=== PATIENT | female | born 1960 | race Caucasian/White ===

== ENCOUNTER 2017-03-30 07:55 | Emergency (ER) | payer OTHER ==
[~2017-03-30] VITALS: Ht 144.8 cm; Wt 40.0 kg
[2017-03-30 07:55] VITALS: BP 90/55; PULSE 108; RESP 20; TEMP 98.8; O2SAT 99
[~2017-03-30 07:55] MED LIST: AZIT250T3 PO; BIOT1SUB SL; BROMSYP PO; CLON1TAB PO; FOLI1TAB4 PO; MAGICADU2 SWISH-SWAL; MEDR4PAK PO; SYNT88TA PO; VENTAER INH; VITA10002 PO
--- NOTE | 2017-03-30 08:06 | PD ---
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 Patient went to the [employer] and bought [id number] itch cream and some sort of a medicated powder put down there. Patient says that made the lesions worse. She applied hydrocortisone cream and Benadryl cream and it is not helping. She says currently it hurts a lot down there. Patient is not sexually active. She's never had anything like this before. No history of fever or chills. She seems anxious and in moderate distress. She was tachycardic and slightly hypotensive. The patient is also very petite. [facility] Past Medical History Narrative Medical List of her past medical, surgical, social and family history was reviewed from the nursing note. ?: Not Social History Alcohol Use: No Tobacco Use: Yes Substance Use: No Allergies-Medications (Allergen,Severity, Reaction): Coded Allergies: Darvocet-N 100 (Verified Allergy, Severe, 01/02/17) STOMACH PAIN Darvon (Verified Allergy, Severe, 01/02/17) PASS OUT Depakote (Verified Allergy, Severe, Anaphylaxis, 01/02/17) Erythromycin (Verified Allergy, Severe, VOMITING, 01/02/17) Penicillin (Verified Allergy, Severe, PASS OUT, 01/02/17) Lortab (Verified Allergy, Mild, VOMITING, 01/02/17) Iodine (Verified Allergy, Unknown, 01/02/17) Comments List of her allergies reviewed from the nursing note. Reported Meds & Prescriptions Reported Meds & Active Scripts Active Ibuprofen 400 Mg Tab 400 Mg PO Q4H PRN Bactrim (Sulfamethoxazole-Trimethoprim) 400-80 Mg Tab 1 Tab PO BID 10 Days Ventolin Hfa 18 GM Inh (Albuterol Sulfate) 90 Mcg/Act Aer 2 Puff INH Q6H PRN Azithromycin 250 Mg Tab 250 Mg PO DIRECTED Take 2 tabs (500 mg) on day 1 then 1 tab daily x 4 days. Magic Mouthwash Adult Liq (Multi-Ingredient Mouthwash/Gargle) 120 Ml Susp 5 Ml SWISH-SWAL ACHS Each 5mL contains: Nystatin 200,000units, Diphenhydramine 4.25mg, Viscous Lidocaine 10mg, Lerma syrup 0.8 mL Medrol Dosepak (Methylprednisolone) 4 Mg Dspk 4 Mg PO DIRECTED Per Pharmacist direction Bromfed DM Liq (Iqpnwzaspqulidq-Ufeibdzhthekgzm-NN Liq) 30-2-10 Mg/5 Ml Syrp 2.5 Ml PO Q6H PRN Synthroid (Levothyroxine Sodium) 88 Mcg Tab 88 Mcg PO DAILY Clonazepam 1 Mg Tab 1 Mg PO BID Reported Biotin 5,000 Mcg Subl 5,000 Mcg SL Folate (Folic Acid) 1 Mg Tab 1 Mg PO DAILY Vitamin B-12 (Cyanocobalamin) 1,000 Mcg Tab 1,000 Mcg PO DAILY Narrative Medication List of her home medications reviewed from the nursing note. Review of Systems Except as stated in HPI: all other systems reviewed are Neg Physical Exam Narrative GENERAL: Awake, alert, moderate distress SKIN: Focused skin assessment warm/dry. HEAD: Atraumatic. Normocephalic. EYES: Pupils equal and round. No scleral icterus. No injection or drainage. Hordeolum on the right eyelid ENT: No nasal bleeding or discharge. Mucous membranes pink and moist. NECK: Trachea midline. No JVD. CARDIOVASCULAR: Regular rate and rhythm. No murmur appreciated. RESPIRATORY: No accessory muscle use. Clear to auscultation. Breath sounds equal bilaterally. GASTROINTESTINAL: Abdomen soft, non-tender, nondistended. Hepatic and splenic margins not palpable. : Multiple erythematous, raised and indurated lesions that are about 0.5-1 cm in diameter. These are all on the vulvar and perineal area. Few of them are pustular in nature. These are tender. No vaginal discharge or bleeding. MUSCULOSKELETAL: No obvious deformities. No clubbing. No cyanosis. No edema. NEUROLOGICAL: Awake and alert. No obvious cranial nerve deficits. Motor grossly within normal limits. Normal speech. PSYCHIATRIC: Appropriate mood and affect; insight and judgment normal. Data Data Last Documented VS Vital Signs Date Time Temp Pulse Resp B/P Pulse Ox O2 Delivery O2 Flow Rate FiO2 03/30/17 07:55 98.8 108 20 90/55 99 Room Air Orders Sulfamet-Trimeth Ds 800-160 Mg (Bactrim (03/30/17 08:30) Ibuprofen (Motrin) (03/30/17 08:30) MDM Medical Decision Making Medical Screen Exam Complete: Yes Emergency Medical Condition: Yes Medical Record Reviewed: Yes Differential Diagnosis Folliculitis, follicular abscess Narrative Course 8:40 AM patient was given by mouth Bactrim and Motrin. She drove herself in and does not have anybody who can ride her back. She was comfortable with Motrin only. I'll give her prescription for both. She'll eventually be discharged. I've given her instructions for sitz bath as well. Procedures EKG Prior to Arrival: No Diagnosis Primary Impression: Folliculitis Referrals: Primary Care Physician Additional Instructions: Please return to the ER if the condition worsens or any other new concerns. Take the medication as per the prescription direction. Sit in this sitz bath which is feeling the bathtub with 2 feet of hot water and 3-4 tablespoon of Epsom salt and soaking about him for 20 minutes each time. Do it 5-6 times a day. Follow-up with your primary care. Med/Other Pt SpecificInfo: Prescription(s) given Scripts Ibuprofen 400 Mg [id number] Mg PO Q4H PRN (pain) #30 TAB Ref 0 Prov:Manuel Beckwith MD 03/30/17 Sulfamethoxazole-Trimethoprim (Bactrim)400-80 Mg Tab1 Tab PO BID 10 Days Ref 0 Prov:Manuel eBckwith MD 03/30/17 Disposition: 01 DISCHARGE HOME Condition: Stable Manuel Beckwith MD Mar 30, 2017 08:06
[2017-03-30] MEDS ORDERED: SULFAMETHOXAZOLE-TRIMETHOPRIM DS 800-160 MG TAB PO ONE (08:30)
[2017-03-30] MEDS ORDERED: IBUPROFEN 400 MG TAB PO ONE (08:30)
[2017-03-30] MEDS ORDERED: BACT400T PO (09:15)
[2017-03-30] MEDS ORDERED: IBUP400T20 PO (09:15)
== END 2017-03-30 09:23 | disposition home or self-care (01) ==
LOC: NEPE 07:55
DX: L73.9 Follicular disorder, unspecified (principal); Z72.0 Tobacco use
CPT/HCPCS: 99283

== ENCOUNTER 2018-02-07 13:34 | Inpatient (IN) | payer BC ==
[~2018-02-07] VITALS: Ht 142.2 cm; Wt 37.0 kg
[2018-02-07] VITALS (12 sets, daily range): BP systolic 89–126; BP diastolic 49–78; PULSE 93–99; RESP 16–20; TEMP 98.1–99.7; O2SAT 97–100
[~2018-02-07 13:34] MED LIST changes: +BACT400T PO; +IBUP1TAB5 PO
[2018-02-07 14:42] LABS: AUTOMATED NEUTROPHIL # 5.4 TH/MM3 (1.8-7.7); BASOPHIL # 0.1 TH/MM3 (0-0.2); BASOPHIL % 1.1 % (0.0-2.0); EOSINOPHIL # 0.1 TH/MM3 (0-0.4); EOSINOPHIL % 1.8 % (0.0-4.0); LYMPH % 15.6 % (9.0-44.0); LYMPHOCYTE # 1.1 TH/MM3 (1.0-4.8); MEAN CELL VOLUME 83.5 FL (80.0-100.0); MEAN CORPUSCULAR HEMOGLOBIN 27.4 PG (27.0-34.0); MEAN CORPUSCULAR HGB CONC 32.8 % (32.0-36.0); MEAN PLATELET VOLUME 6.3 FL (7.0-11.0); MONOCYTE # 0.4 TH/MM3 (0-0.9); NEUT % 75.5 % (16.0-70.0); PLATELET COUNT 527 TH/MM3 (150-450); RED BLOOD COUNT 2.25 MIL/MM3 (4.00-5.30); RED CELL DISTRIBUTION WIDTH 22.2 % (11.6-17.2); WHITE BLOOD COUNT 7.1 TH/MM3 (4.0-11.0)
[2018-02-07 14:49] LABS: HEMATOCRIT 18.8 % (35.0-46.0); HEMOGLOBIN 6.2 GM/DL (11.6-15.3)
[2018-02-07 14:55] LABS: ALBUMIN 2.6 GM/DL (3.4-5.0); ALT (GPT) 16 U/L (10-53); AST (GOT) 8 U/L (15-37); BICARBONATE 27.9 MEQ/L (21.0-32.0); BLOOD UREA NITROGEN 11 MG/DL (7-18); CALCIUM 8.8 MG/DL (8.5-10.1); CHLORIDE 108 MEQ/L (98-107); CREATININE 0.74 MG/DL (0.50-1.00); GLOMERULAR FILTRATION RATE 81 ML/MIN (>89); GLUCOSE,RANDOM 87 MG/DL (74-106); SODIUM (NA) 142 MEQ/L (136-145)
[2018-02-07 14:56] LABS: ALKALINE PHOSPHATASE 92 U/L (45-117); TOTAL BILIRUBIN ADULT 0.4 MG/DL (0.2-1.0); TOTAL PROTEIN 8.3 GM/DL (6.4-8.2)
[2018-02-07] MEDS ORDERED: SODIUM CHLOR 0.9% 250 ML INJ 250 ML IV ONE (16:15)
[2018-02-07] MEDS ORDERED: LORazepam 2 MG/ML VIAL IV PUSH ONE (17:45)
[2018-02-07] MEDS ORDERED: NALOXONE HCL 0.4 MG/ML AMP IV PUSH PRN (17:45)
[2018-02-07] MEDS ORDERED: SODIUM CHLORIDE 0.9% FLUSH 10 ML FLUSH IV FLUSH PRN (17:45)
[2018-02-07] MEDS ORDERED: ONDANSETRON HCL 4 MG/2 ML VIAL IVP PRN (17:45)
[2018-02-07] MEDS ORDERED: SENNOSIDES 8.6 MG TAB PO PRN (18:30)
[2018-02-07] MEDS ORDERED: cloNIDine HCL 0.1 MG TAB PO PRN (18:30)
[2018-02-07] MEDS ORDERED: BISACODYL 10 MG SUPP RECTAL PRN (18:30)
[2018-02-07] MEDS ORDERED: LACTULOSE SYRUP 20 GM/30 ML CUP PO PRN (18:30)
[2018-02-07] MEDS ORDERED: MAGNESIUM HYDROXIDE SUSP 30 ML CUP PO PRN (18:30)
--- NOTE | 2018-02-07 18:40 | HHI.HP ---
[facility] Service Family Medicine Primary Care Physician Talat Ugarte MD Admission Diagnosis symptomatic anemia, history of pernicious anemia, vulvar cancer Diagnoses: International Travel<30 Days: No Contact w/Intl Traveler<30days: No History of Present Illness Patient is a 57 year old female with recent diagnosis of vulvar cancer who presents with severe anemia. She states that she has been tired since approximately August. She denies dizziness. She does note that she has chills at night when everyone else is comfortable. She has chronic shortness of breath which has not worsened and denies chest pain, easy bruising, syncopal episodes, nausea, vomiting. She does state she has been depressed lately given her mother and son have both recently . She does not note any recent bleeding episodes and specifically denies black or bloody stools, and does state she has never had a colonoscopy. She has not had any postmenopausal bleeding, noting that menopause was age 49. She does note that she has chronic history of intermittent constipation and has in the past had to disimpact herself but this has not been necessary lately. Hemoglobin was found to be 5.7 on preop testing studies with Dr. Hoyos' office and she was sent over due to this. Dr. Hoyos is planning to perform a modified radical resection of her posterior left vulva and perineum and she is pending medical evaluation with her PCP Dr. Ugarte per [employer] oncology notes. Review of Systems Constitutional: COMPLAINS OF: Chills, Dizziness, DENIES: Fever Endocrine: DENIES: Abnorml menstrual pattern, Polydipsia, Polyuria Eyes: DENIES: Blurred vision, Diplopia, Eye pain Ears, nose, mouth, throat: DENIES: Tinnitus, Hearing loss, Throat pain, Hoarseness Respiratory: COMPLAINS OF: Cough (Chronic), DENIES: Apneas, Hemoptysis, Shortness of breath Cardiovascular: COMPLAINS OF: Dyspnea on Exertion, DENIES: Chest pain, Palpitations, Syncope, Lower Extremity Edema, Orthopnea, Claudication Gastrointestinal: COMPLAINS OF: Constipation, Anorexia, DENIES: Abdominal pain , Black stools, Bloody stools, Diarrhea, Nausea, Vomiting, Difficulty Swallowing Musculoskeletal: DENIES: Joint pain, Muscle aches, Stiffness, Joint Swelling Integumentary: DENIES: Pruritus, Rash Hematologic/lymphatic: DENIES: Bruising, Lymphadenopathy Immunologic/allergic: DENIES: Eczema, Urticaria Neurologic: DENIES: Abnormal gait, Poor Balance Psychiatric: COMPLAINS OF: Mood changes, Depression (Since her son last year), Hallucinations (Per sister, patient does hear voices since the of her mother), DENIES: Anxiety, Confusion, Suicidal Ideation, Homicidal Ideation Past Family Social History Past Medical History Anemia -chronic, reportedly has a history of pernicious anemia, declined bone marrow biopsy in 1990 Anxiety Arthritis Asthma Bipolar disorder -not on meds Cholestatic jaundice syndrome - remote COPD Degeneration of intervertebral disc Hemorrhoids Hypertension Hypothyroidism IBD? Macrocytosis - patient reports history of pernicious anemia Osteoporosis History of pneumonia Previous cancer surgery in 1990 (per EMR) OB history: ,, menopausal age 41 Past Surgical History Laser cone for cervical dysplasia 1990 Multiple LEEPs Reported Medications Reported Meds & Active Scripts Active Clonazepam 1 Mg Tab 1 Mg PO BID Ibuprofen 400 Mg Tab 400 Mg PO Q4H PRN Ventolin Hfa 18 GM Inh (Albuterol Sulfate) 90 Mcg/Act Aer 2 Puff INH Q6H PRN Magic Mouthwash Adult Liq (Multi-Ingredient Mouthwash/Gargle) 120 Ml Susp 5 Ml SWISH-SWAL ACHS Each 5mL contains: Nystatin 200,000units, Diphenhydramine 4.25mg, Viscous Lidocaine 10mg, Lerma syrup 0.8 mL Medrol Dosepak (Methylprednisolone) 4 Mg Dspk 4 Mg PO DIRECTED Per Pharmacist direction Bromfed DM Liq (Xdwxzuqyzltfcqy-Ipswglgpgcuddmp-WN Liq) 30-2-10 Mg/5 Ml Syrp 2.5 Ml PO Q6H PRN Synthroid (Levothyroxine Sodium) 88 Mcg Tab 88 Mcg PO DAILY Reported Vitamin B-12 (Cyanocobalamin) 1,000 Mcg Tab 1,000 Mcg PO DAILY Allergies: Coded Allergies: acetaminophen (Unverified Allergy, Severe, 02/07/18) STOMACH PAIN divalproex sodium (Unverified Allergy, Severe, Anaphylaxis, 02/07/18) erythromycin base (Unverified Allergy, Severe, VOMITING, 02/07/18) penicillin G (Unverified Allergy, Severe, PASS OUT, 02/07/18) propoxyphene (Unverified Allergy, Severe, 02/07/18) STOMACH PAIN hydrocodone (Unverified Allergy, Mild, VOMITING, 02/07/18) iodine (Unverified Allergy, Unknown, 02/07/18) potassium iodide (Unverified Allergy, Unknown, 02/07/18) povidone-iodine (Unverified Allergy, Unknown, 02/07/18) sodium iodide (Unverified Allergy, Unknown, 02/07/18) sodium iodide (Unverified Allergy, Unknown, 02/07/18) Active Ordered Medications Inpatient Medications Lorazepam (Ativan Inj) 1 mg ONCE ONCE IV PUSH ; Start 02/07/18 at 17:45; Stop 02/07/18 at 17:46; Status DC Naloxone HCl (Narcan Inj) 0.4 mg UNSCH PRN IV PUSH SEE LABEL COMMENTS; Start at 17:45 Ondansetron HCl (Zofran Inj) 4 mg Q6H PRN IVP NAUSEA OR VOMITING; Start at 17:45 Sodium Chloride (NS Flush) 2 ml BID IV FLUSH ; Start 02/07/18 at 21:00 Family History Mother: HTN, hypothyroidism, HL, COPD, age 94 Father: from heart failure/cardiac arrest at age 52 Brother: Cardiac arrest age 47 Brother: fibromyalgia, brain and nerve damage, at 53 Sister: hereditary spherocytosis Son: recently from drug related, an EMR report states he 01/29/2018 Social History She is but states her has multiple medical problems and is dealing with the loss of their only son. She states her sister would be her healthcare surrogate Smoking tobacco 1-2 PPD since age 24 Denies alcohol use, has history of alcohol dependence Denies illicit drug use. Remote history of crystal meth, speed, cocaine Physical Exam Vital Signs Vital Signs Date Time Temp Pulse Resp B/P (MAP) Pulse Ox O2 Delivery O2 Flow Rate FiO2 02/07/18 17:35 99.3 93 16 99/52 99 02/07/18 17:20 98.9 94 16 113/49 97 02/07/18 16:08 97 02/07/18 16:08 98 20 98/52 (67) 100 Room Air 02/07/18 14:11 98.1 99 16 126/77 (93) 100 Physical Exam GENERAL: This is a cachectic female who appears older than her stated age. SKIN: No rashes, ecchymoses or lesions. Cool and dry. Very pale. HEAD: Atraumatic. Normocephalic. No temporal or scalp tenderness. EYES: PERRL, EOMI. Moderate conjunctival pallor noted. No scleral icterus. No injection or drainage. ENT: Nose without bleeding or drainage. Throat without erythema, tonsillar hypertrophy or exudate. Uvula midline. Airway patent. NECK: Trachea midline. No JVD or lymphadenopathy. Supple, nontender, no meningeal signs. CARDIOVASCULAR: Tachycardia mild with systolic ejection murmur in aortic area. RESPIRATORY: Clear to auscultation. Somewhat shallow breaths taken during exam. Breath sounds equal bilaterally. No wheezes, rales, or rhonchi. GASTROINTESTINAL: Abdomen soft, non-tender, mildly distended. No hepato- splenomegaly, or palpable masses. No guarding. RECTAL: refused exam : refused exam, states she has LAD there MUSCULOSKELETAL: Extremities without clubbing, cyanosis, or edema. No joint tenderness, effusion, or edema noted. No calf tenderness. Negative Homans sign bilaterally. NEUROLOGICAL: Awake and alert. Cranial nerves II through XII intact. Motor and sensory grossly within normal limits. Reduced strength 4/5 in UEs bilaterally. Normal speech. Laboratory Laboratory Tests Test 02/07/18 14:25 White Blood Count 7.1 Red Blood Count 2.25 Hemoglobin 6.2 Hematocrit 18.8 Mean Corpuscular Volume 83.5 Mean Corpuscular Hemoglobin 27.4 Mean Corpuscular Hemoglobin Concent 32.8 Red Cell Distribution Width 22.2 Platelet Count 527 Mean Platelet Volume 6.3 Neutrophils (%) (Auto) 75.5 Lymphocytes (%) (Auto) 15.6 Monocytes (%) (Auto) 6.0 Eosinophils (%) (Auto) 1.8 Basophils (%) (Auto) 1.1 Neutrophils # (Auto) 5.4 Lymphocytes # (Auto) 1.1 Monocytes # (Auto) 0.4 Eosinophils # (Auto) 0.1 Basophils # (Auto) 0.1 CBC Comment DIFF FINAL Differential Comment Blood Urea Nitrogen 11 Creatinine 0.74 Random Glucose 87 Total Protein 8.3 Albumin 2.6 Calcium Level 8.8 Alkaline Phosphatase 92 Aspartate Amino Transf (AST/SGOT) 8 Alanine Aminotransferase (ALT/SGPT) 16 Total Bilirubin 0.4 Sodium Level 142 Potassium Level 4.0 Chloride Level 108 Carbon Dioxide Level 27.9 Anion Gap 6 Estimat Glomerular Filtration Rate 81 Result Diagram: 02/07/18 1425 02/07/18 1425 Caprini VTE Risk Assessment Caprini VTE Risk Assessment: Mod/High Risk (score >= 2) VTE Pharm Contraindication: High risk for bleeding Caprini Risk Assessment Model Point Value = 1 Point Value = 2 Point Value = 3 Point Value = 5 Age 41-60 Minor surgery BMI > 25 kg/m2 Swollen legs Varicose veins or History of unexplained or recurrent spontaneous Oral contraceptives or hormone replacement Sepsis (< 1 month) Serious lung disease, including pneumonia (< 1 month) Abnormal pulmonary function Acute myocardial infarction Congestive heart failure (< 1 month) History of inflammatory bowel disease Medical patient at bed rest Age 61-74 Arthroscopic surgery Major open surgery (> 45 min) Laparoscopic surgery (> 45 min) Malignancy Confined to bed (> 72 hours) Immobilizing plaster cast Central venous access Age >= 75 History of VTE Family history of VTE Factor V Leiden Prothrombin [id number] Lupus anticoagulant Anticardiolipin antibodies Elevated serum homocysteine Heparin-induced thrombocytopenia Other congenital or acquired thrombophilia Stroke (< 1 month) Elective arthroplasty Hip, pelvis, or leg fracture Acute spinal cord injury (< 1 month) Prophylaxis Regimen Total Risk Factor Score Risk Level Prophylaxis Regimen 0-1 Low Early ambulation 2 Moderate Order ONE of the following: *Sequential Compression Device (SCD) *Heparin 5000 units SQ BID 3-4 Higher Order ONE of the following medications: *Heparin 5000 units SQ TID *Enoxaparin/Lovenox 40 mg SQ daily (WT < 150 kg, CrCl > 30 mL/min) *Enoxaparin/Lovenox 30 mg SQ daily (WT < 150 kg, CrCl > 10-29 mL/min) *Enoxaparin/Lovenox 30 mg SQ BID (WT < 150 kg, CrCl > 30 mL/min) AND/OR *Sequential Compression Device (SCD) 5 or more Highest Order ONE of the following medications: *Heparin 5000 units SQ TID (Preferred with Epidurals) *Enoxaparin/Lovenox 40 mg SQ daily (WT < 150 kg, CrCl > 30 mL/min) *Enoxaparin/Lovenox 30 mg SQ daily (WT < 150 kg, CrCl > 10-29 mL/min) *Enoxaparin/Lovenox 30 mg SQ BID (WT < 150 kg, CrCl > 30 mL/min) AND *Sequential Compression Device (SCD) Assessment and Plan Assessment and Plan Patient is a 57-year-old female admitted for symptomatic anemia of unknown etiology. Patient does have a malignancy diagnosis and has never had a colonoscopy but states she has hemorrhoid history. Workup is indicated but at this time patient would like to defer. She prefers to not be admitted to [address] during this hospitalization or ever given her history there with her son. Code Status Full code, confirmed 02/07/17 She states she would want her sister to be her healthcare surrogate but is legally . She is made aware at bedside this evening that she should consider signing healthcare surrogacy forms and complete living will paperwork this hospitalization. Nursing order placed to reevaluate this with patient. Discussed Condition With Patient was seen and examined with Dr. sheriff Problem List: (1) Anemia of unknown etiology ICD Codes: D64.9 - Anemia, unspecified Status: Acute Plan: Borderline microcytic. On B12 supplementation, no reported hx of iron deficiency. No obvious source. Differential diagnosis includes iron deficiency, B12/folate deficiency, chronic disease, hemolysis, GI malignancy, myelodysplastic syndrome, hemoglobinopathy. She could also have chronic malnutrition. Admit to observation for PRBC administration, initiated in the ED, likely will receive 3 units with repeat CBC after third unit. Will monitor fluid status and administer Lasix if needed. Will monitor vital signs closely. Will monitor symptoms closely. Workup for anemia to include B12, folate, iron studies, further workup if needed. Will add coags in the morning. Patient is counseled that rectal exam and colonoscopy would be indicated in the workup. She defers at this time. Consider hematology consult if etiology unclear after basic workup. (2) COPD (chronic obstructive pulmonary disease) ICD Codes: J44.9 - Chronic obstructive pulmonary disease, unspecified Status: Chronic Plan: COPD not apparently on any controller meds. Will monitor symptoms and give treatment as needed. Asymptomatic with normal oxygenation at admission. (3) Vitamin B 12 deficiency ICD Codes: E53.8 - Vitamin B 12 deficiency Status: Chronic Plan: Per patient does have history of B12 deficiency which could lead to anemia over time. Will check B12 level this hospitalization. Patient to continue supplementation while inpatient (4) Vulvar cancer ICD Codes: C51.9 - Malignant neoplasm of vulva, unspecified Status: Acute Plan: Workup currently in progress with Dr. Hoyos. Anemia was found on preoperative lab work. Management to continue as outpatient. (5) Hypothyroidism ICD Codes: E03.9 - Hypothyroidism Status: Chronic Plan: Chronic hypothyroidism, mild based on dose of levothyroxine 88 mcg daily. Will continue while inpatient. (6) Bipolar disorder ICD Codes: F31.9 - Bipolar disorder Status: Chronic Plan: Patient states she has a history of bipolar disorder and is allergic to all the meds. She is not on any meds. No acute exacerbation noted. Will monitor symptoms. (7) Anxiety disorder ICD Codes: F41.9 - Anxiety disorder Status: Chronic Plan: Patient has chronic anxiety disorder and on Klonopin as needed at home. We will continue with close monitoring while inpatient. Patient did require Ativan 1 mg IV push once in the ED on 02/07 (8) Fluids/Electrolytes/Nutrition/Prophylaxis Status: Acute Plan: Fluids: PO hydration Electrolytes: monitor and replete as needed Nutrition: regular DVT Prophylaxis: Early ambulation. Bilateral SCDs. GI Prophylaxis: Not indicated. Stool regimen per protocol for constipation prevention. PRN anti-HTN: Clonidine 0.1mg PO PRN for SBP > 180/ and/or DBP > 100 She has noted to have a Darvocet allergy, if patient does have pain will likely need to treat with as opiate. Currently not in any pain. Does also have hydrocodone allergy. Anticipate discharge tomorrow after PRBC administration and follow-up on symptoms and blood count. Patient declines physical therapy consultation during this hospitalization. Activity out of bed with assistance only at this time. Problem Qualifiers (1) COPD (chronic obstructive pulmonary disease): Qualified Codes: J44.9 - Chronic obstructive pulmonary disease, unspecified (2) Hypothyroidism: Qualified Codes: E03.9 - Hypothyroidism, unspecified (3) Bipolar disorder: Qualified Codes: F31.9 - Bipolar disorder, unspecified Amarilys Beavers MD R2 Feb 07, 2018 18:40
--- NOTE | 2018-02-07 18:51 | PD ---
HPI Chief Complaint: Abnormal Results Time Seen by Provider: 15:53 Travel History International Travel<30 days: No Contact w/Intl Traveler<30days: No History of Present Illness HPI 57-year-old female with a history of pernicious anemia, newly diagnosed vulvar cancer, who presents today after she had outpatient labs drawn yesterday which showed a hemoglobin less than 6. Patient states that she has been weak and short of breath over the last several weeks. She attributed this to being secondary to her not sleeping well secondary to her son and mother dying recently. The patient denies any chest pain, chest pressure. The patient denies any rectal bleeding or dark tarry stools. She states that in the she was being worked up for pernicious anemia however stopped going to the manager pmo because she did not feel as though they were doing any good at that time. PFSH Past Medical History Anemia: Yes Arthritis: Yes (OA) Anxiety: Yes Cancer: Yes COPD: Yes Diminished Hearing: No Neurologic: Yes (Degenerative disc disease) Thyroid Disease: Yes (hypo) Tetanus Vaccination: Unknown Influenza Vaccination: No ?: Not Social History Alcohol Use: No Tobacco Use: Yes Substance Use: No Allergies-Medications (Allergen,Severity, Reaction): Coded Allergies: acetaminophen (Unverified Allergy, Severe, 02/07/18) STOMACH PAIN divalproex sodium (Unverified Allergy, Severe, Anaphylaxis, 02/07/18) erythromycin base (Unverified Allergy, Severe, VOMITING, 02/07/18) penicillin G (Unverified Allergy, Severe, PASS OUT, 02/07/18) propoxyphene (Unverified Allergy, Severe, 02/07/18) STOMACH PAIN hydrocodone (Unverified Allergy, Mild, VOMITING, 02/07/18) iodine (Unverified Allergy, Unknown, 02/07/18) potassium iodide (Unverified Allergy, Unknown, 02/07/18) povidone-iodine (Unverified Allergy, Unknown, 02/07/18) sodium iodide (Unverified Allergy, Unknown, 02/07/18) sodium iodide (Unverified Allergy, Unknown, 02/07/18) Reported Meds & Prescriptions Reported Meds & Active Scripts Active Clonazepam 1 Mg Tab 1 Mg PO BID Ibuprofen 400 Mg Tab 400 Mg PO Q4H PRN Ventolin Hfa 18 GM Inh (Albuterol Sulfate) 90 Mcg/Act Aer 2 Puff INH Q6H PRN Magic Mouthwash Adult Liq (Multi-Ingredient Mouthwash/Gargle) 120 Ml Susp 5 Ml SWISH-SWAL ACHS Each 5mL contains: Nystatin 200,000units, Diphenhydramine 4.25mg, Viscous Lidocaine 10mg, Lerma syrup 0.8 mL Medrol Dosepak (Methylprednisolone) 4 Mg Dspk 4 Mg PO DIRECTED Per Pharmacist direction Bromfed DM Liq (Lnzrntzkkashptz-Ydjvacclvvfcsyh-PK Liq) 30-2-10 Mg/5 Ml Syrp 2.5 Ml PO Q6H PRN Synthroid (Levothyroxine Sodium) 88 Mcg Tab 88 Mcg PO DAILY Reported Vitamin B-12 (Cyanocobalamin) 1,000 Mcg Tab 1,000 Mcg PO DAILY Review of Systems Except as stated in HPI: all other systems reviewed are Neg General / Constitutional: No: Fever, Chills HENT: Positive: Lightheadedness, No: Headaches, Neck Pain Cardiovascular: No: Chest Pain or Discomfort, Palpitations Respiratory: Positive: Shortness of Breath, No: Cough Gastrointestinal: Positive: Constipation, No: Nausea, Vomiting, Abdominal Pain Genitourinary: Positive: Other (Vulvar cancer), No: Frequency, Dysuria Musculoskeletal: Positive: Weakness (Generalized), No: Pain Neurologic: Positive: Weakness, Dizziness, No: Headache, Change in Mentation Physical Exam Narrative GENERAL: Pale weak appearing female in no acute respiratory distress. SKIN: Focused skin assessment warm/dry. HEAD: Atraumatic. Normocephalic. EYES: Pupils equal and round. Pale conjunctiva. No scleral icterus. No injection or drainage. ENT: No nasal bleeding or discharge. Mucous membranes pale and dry. NECK: Trachea midline. No JVD. CARDIOVASCULAR: Tachycardic with a rate in the low 100s. No murmurs appreciated. RESPIRATORY: No accessory muscle use. Clear to auscultation. Breath sounds equal bilaterally. GASTROINTESTINAL: Abdomen soft, non-tender, nondistended. MUSCULOSKELETAL: No obvious deformities. No clubbing. No cyanosis. No edema. NEUROLOGICAL: Awake and alert. No obvious cranial nerve deficits. Motor grossly within normal limits. Normal speech. PSYCHIATRIC: Anxious appearing. Data Data Last Documented VS Vital Signs Date Time Temp Pulse Resp B/P (MAP) Pulse Ox O2 Delivery O2 Flow Rate FiO2 02/07/18 17:35 99.3 93 16 99/52 99 02/07/18 16:08 Room Air Orders Orders Complete Blood Count With Diff (02/07/18 14:15) Comprehensive Metabolic Panel (02/07/18 14:15) Iv Access Insert/Monitor (02/07/18 14:15) Type And Screen (02/07/18 14:15) Red Blood Cells (Rbc) (02/07/18 16:10) Blood Product Administration (02/07/18 16:10) Sodium Chlor 0.9% 250 Ml Inj (Ns 250 Ml (02/07/18 16:15) Place In Observation (02/07/18 ) Code Status (02/07/18 17:32) Vital Signs (Adult) Q4H (02/07/18 17:32) Activity Oob With Assistance (02/07/18 17:32) Intake + Output CLARKE.QSHIFT (02/07/18 17:32) Diet Regular Basic (02/07/18 Dinner) Sodium Chloride 0.9% Flush (Ns Flush) (02/07/18 17:45) Sodium Chloride 0.9% Flush (Ns Flush) (02/07/18 21:00) Ondansetron Inj (Zofran Inj) (02/07/18 17:45) Comprehensive Metabolic Panel (02/08/18 06:00) Complete Blood Count With Diff (02/08/18 06:00) Resp Oxygen Burke C Titrat 1-4 L (02/07/18 ) Naloxone Inj (Narcan Inj) (02/07/18 17:45) Admit Order (Ed Use Only) (02/07/18 17:38) Labs Laboratory Tests Test 02/07/18 14:25 White Blood Count 7.1 TH/MM3 Red Blood Count 2.25 MIL/MM3 Hemoglobin 6.2 GM/DL Hematocrit 18.8 % Mean Corpuscular Volume 83.5 FL Mean Corpuscular Hemoglobin 27.4 PG Mean Corpuscular Hemoglobin Concent 32.8 % Red Cell Distribution Width 22.2 % Platelet Count 527 TH/MM3 Mean Platelet Volume 6.3 FL Neutrophils (%) (Auto) 75.5 % Lymphocytes (%) (Auto) 15.6 % Monocytes (%) (Auto) 6.0 % Eosinophils (%) (Auto) 1.8 % Basophils (%) (Auto) 1.1 % Neutrophils # (Auto) 5.4 TH/MM3 Lymphocytes # (Auto) 1.1 TH/MM3 Monocytes # (Auto) 0.4 TH/MM3 Eosinophils # (Auto) 0.1 TH/MM3 Basophils # (Auto) 0.1 TH/MM3 CBC Comment DIFF FINAL Differential Comment Blood Urea Nitrogen 11 MG/DL Creatinine 0.74 MG/DL Random Glucose 87 MG/DL Total Protein 8.3 GM/DL Albumin 2.6 GM/DL Calcium Level 8.8 MG/DL Alkaline Phosphatase 92 U/L Aspartate Amino Transf (AST/SGOT) 8 U/L Alanine Aminotransferase (ALT/SGPT) 16 U/L Total Bilirubin 0.4 MG/DL Sodium Level 142 MEQ/L Potassium Level 4.0 MEQ/L Chloride Level 108 MEQ/L Carbon Dioxide Level 27.9 MEQ/L Anion Gap 6 MEQ/L Estimat Glomerular Filtration Rate 81 ML/MIN MDM Medical Decision Making Medical Screen Exam Complete: Yes Emergency Medical Condition: Yes Differential Diagnosis Symptomatic anemia versus GI bleed versus anemia of chronic disease Narrative Course 57-year-old female who is being worked up for vulvar cancer and surgical procedure, had outpatient prehospital/operative labs. Labs showed a hemoglobin of less than 6. She was sent here for transfusion. The patient will be typed and crossed for 3 units of packed red blood cells. She will be admitted to the resident service. She will be admitted under observation. Case was discussed with Dr. Beavers, senior resident who is admitting for Dr. Ignacio. Diagnosis Primary Impression: Symptomatic anemia Additional Impressions: Vulvar carcinoma History of macrocytic anemia Admitting Information Admitting Physician Requests: Observation Luis Botello MD Feb 07, 2018 18:51
[2018-02-07 18:58] LABS: % SATURATION IRON PROFILE 11.2 % (20-50); IRON (FE) 20 MCG/DL (50-170); RETIC # 48.4 MIL/L (20.0-150.0); RETIC % 2.2 % (0.4-3.0); TOTAL IRON BINDING CAPACITY 179 MCG/DL (250-450)
[2018-02-07 19:24] LABS: FERRITIN 1584 NG/ML (8-252); FOLATE 2.5 NG/ML (3.1-17.5)
[2018-02-07] MEDS: clonazePAM 1 MG TAB PO SCH (20:50)
[2018-02-07] MEDS: SODIUM CHLORIDE 0.9% FLUSH 10 ML FLUSH IV FLUSH SCH (20:51)
[2018-02-07] MEDS ORDERED: DOCUSATE SODIUM 50 MG/SENNA 8.6 MG TAB PO SCH (21:00)
[2018-02-08] VITALS (10 sets, daily range): BP systolic 77–100; BP diastolic 46–70; PULSE 52–96; RESP 16–20; TEMP 97.1–99.2; O2SAT 95–97
[2018-02-08] MEDS ORDERED: IBUPROFEN 600 MG TAB PO ONE (01:30)
[2018-02-08] MEDS ORDERED: LEVOTHYROXINE SODIUM 88 MCG TAB PO SCH (06:00)
[2018-02-08] MEDS: SODIUM CHLORIDE 0.9% FLUSH 10 ML FLUSH IV FLUSH SCH ×2 (09:00→20:37)
[2018-02-08 09:38] LABS: AUTOMATED NEUTROPHIL # 3.7 TH/MM3 (1.8-7.7); BASOPHIL # 0.1 TH/MM3 (0-0.2); BASOPHIL % 0.9 % (0.0-2.0); EOSINOPHIL # 0.1 TH/MM3 (0-0.4); EOSINOPHIL % 2.5 % (0.0-4.0); HEMATOCRIT 31.5 % (35.0-46.0); HEMOGLOBIN 10.9 GM/DL (11.6-15.3); LYMPH % 26.3 % (9.0-44.0); LYMPHOCYTE # 1.5 TH/MM3 (1.0-4.8); MEAN CELL VOLUME 83.1 FL (80.0-100.0); MEAN CORPUSCULAR HEMOGLOBIN 28.8 PG (27.0-34.0); MEAN CORPUSCULAR HGB CONC 34.7 % (32.0-36.0); MEAN PLATELET VOLUME 6.7 FL (7.0-11.0); MONOCYTE # 0.3 TH/MM3 (0-0.9); NEUT % 64.3 % (16.0-70.0); PLATELET COUNT 423 TH/MM3 (150-450); RED BLOOD COUNT 3.79 MIL/MM3 (4.00-5.30); RED CELL DISTRIBUTION WIDTH 17.4 % (11.6-17.2); WHITE BLOOD COUNT 5.7 TH/MM3 (4.0-11.0)
[2018-02-08 09:50] LABS: INTERNATIONAL NORMALIZED RATIO 1.2 RATIO; PROTHROMBIN TIME - PATIENT 12.3 SEC (9.8-11.6)
[2018-02-08 09:54] LABS: ALBUMIN 2.2 GM/DL (3.4-5.0); AST (GOT) 8 U/L (15-37); BICARBONATE 27.1 MEQ/L (21.0-32.0); BLOOD UREA NITROGEN 12 MG/DL (7-18); CALCIUM 8.8 MG/DL (8.5-10.1); CHLORIDE 106 MEQ/L (98-107); CREATININE 0.76 MG/DL (0.50-1.00); GLOMERULAR FILTRATION RATE 79 ML/MIN (>89); GLUCOSE,RANDOM 80 MG/DL (74-106); SODIUM (NA) 140 MEQ/L (136-145)
[2018-02-08 09:56] LABS: ALT (GPT) 15 U/L (10-53)
[2018-02-08 09:58] LABS: ALKALINE PHOSPHATASE 87 U/L (45-117); TOTAL BILIRUBIN ADULT 0.9 MG/DL (0.2-1.0); TOTAL PROTEIN 7.5 GM/DL (6.4-8.2)
--- NOTE | 2018-02-08 10:04 | HHI.FPPN ---
Subjective Remarks Patient seen and examined bedside this morning. Patient states she feels better and more alive this morning. She thinks the blood has made her feel better. She states she was chronically fatigued since August with worsening over the last month, she was previously unsure if this was related to a family or other. She is continuing to resist colonoscopy as investigative treatment for chronic anemia. Denies any chest pain or shortness of breath. No acute events overnight. No fever/chills. Objective Vitals Vital Signs Date Time Temp Pulse Resp B/P (MAP) Pulse Ox O2 Delivery O2 Flow Rate FiO2 02/08/18 08:30 97.4 75 89/54 (66) 97 02/08/18 03:49 98.6 96 16 100/62 (75) 02/08/18 02:35 16 02/08/18 02:00 99.2 94 16 98/64 02/08/18 01:45 99.2 90 16 100/70 02/08/18 01:30 99.1 86 18 96/68 02/08/18 01:30 99.1 86 18 96/68 02/08/18 01:12 99.1 84 16 94/62 02/07/18 23:53 98.7 98 16 102/68 02/07/18 22:45 98.7 94 16 102/76 02/07/18 22:45 98.7 94 16 102/76 (85) 02/07/18 22:25 99.7 96 16 102/78 02/07/18 21:55 99.1 96 16 104/68 02/07/18 20:59 99.7 98 16 94/62 02/07/18 18:47 02/07/18 18:40 94 16 110/55 (73) 97 Room Air 02/07/18 18:27 99.3 95 18 89/54 99 02/07/18 18:25 99.3 95 18 89/54 (66) 99 Room Air 02/07/18 17:35 99.3 93 16 99/52 99 02/07/18 17:20 98.9 94 16 113/49 97 02/07/18 16:08 97 02/07/18 16:08 98 20 98/52 (67) 100 Room Air 02/07/18 14:11 98.1 99 16 126/77 (93) 100 I/O 02/07/18 02/07/18 02/07/18 02/08/18 02/08/18 02/08/18 07:00 15:00 23:00 07:00 15:00 23:00 Intake Total 460 ml 420 ml Balance 460 ml 420 ml Intake Packed Cells 400 ml 400 ml Blood Product IV Normal Saline Flush 60 ml 20 ml Result Diagram: 02/07/18 1425 02/07/18 1425 Objective Remarks GENERAL: No acute distress, breathing comfortably on room air SKIN: Warm and dry. HEAD: Normocephalic. EYES: No scleral icterus. No injection or drainage. NECK: Supple, trachea midline. No JVD or lymphadenopathy. CARDIOVASCULAR: Irregular rate and rhythm. Difficult to discern irregular rhythm vs murmur RESPIRATORY: Breath sounds equal bilaterally, somewhat diminished. No accessory muscle use. no wheezing GASTROINTESTINAL: Abdomen soft, non-tender, nondistended. MUSCULOSKELETAL: No cyanosis, or edema. BACK: Nontender without obvious deformity. No CVA tenderness. A/P Assessment and Plan Patient is a 57-year-old female admitted for acute on chronic anemia discovered in outpatient lab; history of anemia of unknown etiology since 1994. Patient does have a recent vulvar malignancy diagnosis and has never had a colonoscopy. Discharge Planning pending stabilization of H&H and cardiac w/u Problem List: (1) Irregular heart rate ICD Codes: I49.9 - Cardiac arrhythmia, unspecified Status: Acute Plan: Regular rate and rhythm on physical exam f/u telemetry f/u EKG (2) Lung mass ICD Codes: R91.8 - Other nonspecific abnormal finding of lung field Status: Chronic Plan: Per chart review, 5 cm lung mass discovered on chest x-ray last week Follow-up chest x-ray today Primary team and Log Chain Worker/Onc suspecting primary lung cancer, and recommended follow- up PET CT as outpatient (3) Anemia of unknown etiology ICD Codes: D64.9 - Anemia, unspecified Status: Acute Plan: acute on chronic, history of B12 and folate deficiencies Postmenopausal with no vaginal bleeding Recent diagnosis of carcinoma in situ, vulvar Hereditary spherocytosis in family Pt s/p 3 U PRBCs f/u post-transfusion CBC f/u coags f/u hemoccult Iron studies - Severe anemia of chronic disease; likely related to malignancy Iron: 20 (SEVERELY LOW) TIBC: 179 - abnormally low % saturation: 11 - abnormally low ferritin (acute phase reactant)- 1500 - abnormally high - f/u ESR, CRP with labs in AM Reticulocyte normal B12 normal Folate slightly low - Folate deficiency - Add Folic 1mg daily x 3 weeks (or indefinitely until resolved) Pt has refused bone marrow exam in past, has refused colonoscopy in past (will consider after vulvar surgery) (4) COPD (chronic obstructive pulmonary disease) ICD Codes: J44.9 - Chronic obstructive pulmonary disease, unspecified Status: Chronic Plan: COPD not apparently on any controller meds. Will monitor symptoms and give treatment as needed. Asymptomatic with normal oxygenation at admission. (5) Vitamin B 12 deficiency ICD Codes: E53.8 - Vitamin B 12 deficiency Status: Chronic Plan: Per patient does have history of B12 deficiency which could lead to anemia over time. B12 normal Continue B12 supplementation (6) Vulvar cancer ICD Codes: C51.9 - Malignant neoplasm of vulva, unspecified Status: Acute Plan: Workup currently in progress with Dr. Hoyos. Anemia was found on preoperative lab work. Management to continue as outpatient. (7) Hypothyroidism ICD Codes: E03.9 - Hypothyroidism Status: Chronic Plan: Chronic hypothyroidism, mild based on dose of levothyroxine 88 mcg daily. Will continue while inpatient. TSH low on 02/06 (.18) - Decrease to 50mcg daily (8) Bipolar disorder ICD Codes: F31.9 - Bipolar disorder Status: Chronic Plan: Patient states she has a history of bipolar disorder and is allergic to all the meds. She is not on any meds. No acute exacerbation noted. Will monitor symptoms. (9) Anxiety disorder ICD Codes: F41.9 - Anxiety disorder Status: Chronic Plan: Patient has chronic anxiety disorder and on Klonopin as needed at home. We will continue with close monitoring while inpatient. Patient did require Ativan 1 mg IV push once in the ED on 02/07 (10) Fluids/Electrolytes/Nutrition/Prophylaxis Status: Acute Plan: Fluids: PO hydration Electrolytes: monitor and replete as needed Nutrition: regular DVT Prophylaxis: Early ambulation. Bilateral SCDs. GI Prophylaxis: Not indicated. Stool regimen per protocol for constipation prevention. PRN anti-HTN: Clonidine 0.1mg PO PRN for SBP > 180/ and/or DBP > 100 She has noted to have a Darvocet allergy, if patient does have pain will likely need to treat with as opiate. Currently not in any pain. Does also have hydrocodone allergy. Anticipate discharge tomorrow after PRBC administration and follow-up on symptoms and blood count. Patient declines physical therapy consultation during this hospitalization. Activity out of bed with assistance only at this time. Problem Qualifiers (1) COPD (chronic obstructive pulmonary disease): Qualified Codes: J44.9 - Chronic obstructive pulmonary disease, unspecified (2) Hypothyroidism: Qualified Codes: E03.9 - Hypothyroidism, unspecified (3) Bipolar disorder: Qualified Codes: F31.9 - Bipolar disorder, unspecified Pita Luu MD R2 Feb 08, 2018 10:04
--- NOTE | 2018-02-08 11:15 | RADRPT ---
EXAM DATE/TIME: 02/08/2018 11:02 [facility] COMPARISON: No previous studies available for comparison. INDICATIONS : Cough. Evaluate metastasis. MEDICAL HISTORY : Carcinoma, labial. SURGICAL HISTORY : None. ENCOUNTER: Initial ACUITY: 1 day PAIN SCORE: 0/10 LOCATION: Bilateral chest FINDINGS: PA and lateral views of the chest demonstrate a large high density mass in the left mid lung measurin g up to approximately 6.1 x 5.3 cm in diameter. No other distinct masses are identified. There is no effusion. The heart size is within normal limits. Soft tissues and bony thorax are unremarkable with mild scoliosis. There is no free air. CONCLUSION: Large soft tissue mass in the left mid lung. The differential diagnosis includes metastatic disease a nd primary bronchogenic carcinoma. Gabino Peterson MD on February 08, 2018 at 11:11 Board Certified Radiologist. This report was verified electronically.
[2018-02-08] MEDS: DOCUSATE SODIUM 100 MG CAP PO SCH ×2 (12:00→20:37)
[2018-02-08] MEDS: CYANOCOBALAMIN 1,000 MCG TAB PO SCH (12:09)
[2018-02-08] MEDS: FERROUS SULFATE 325 MG (65 MG ELEMENTAL IRON) TAB PO SCH (12:10)
[2018-02-08] MEDS: ASCORBIC ACID 500 MG TAB PO SCH (12:10)
[2018-02-08] MEDS: FOLIC ACID 1 MG TAB PO SCH (12:14)
[2018-02-08] MEDS ORDERED: SODIUM CHLOR 0.9% 1000 ML INJ 1,000 ML IV SCH (13:45)
[2018-02-08 14:11] LABS: BILIRUBIN, URINE NEG (NEG); BLOOD, URINE NEG (NEG); GLUCOSE,URINE NEG (NEG); KETONE, URINE NEG (NEG); NITRITE,URINE NEG (NEG); PH, URINE 7.5 (5.0-8.5); SQUAMOUS EPITHELIAL CELL URINE <1 /hpf (0-5); URINE COLOR YELLOW (YELLW/STRAW); URINE LEUKOCYTE ESTERASE NEG (NEG)
[2018-02-08] MEDS: ACETAMINOPHEN 325 MG TAB PO PRN (14:45)
[2018-02-08] MEDS: clonazePAM 1 MG TAB PO SCH ×2 (17:52→21:00)
[2018-02-09] VITALS (9 sets, daily range): BP systolic 83–105; BP diastolic 45–58; PULSE 58–80; RESP 16–20; TEMP 97.5–97.9; O2SAT 95–97
[2018-02-09] MEDS: LEVOTHYROXINE SODIUM 50 MCG TAB PO SCH (05:09)
[2018-02-09 08:37] LABS: AUTOMATED NEUTROPHIL # 3.7 TH/MM3 (1.8-7.7); BASOPHIL % 0.9 % (0.0-2.0); EOSINOPHIL # 0.2 TH/MM3 (0-0.4); EOSINOPHIL % 3.1 % (0.0-4.0); HEMATOCRIT 28.7 % (35.0-46.0); HEMOGLOBIN 9.9 GM/DL (11.6-15.3); LYMPH % 14.4 % (9.0-44.0); LYMPHOCYTE # 0.7 TH/MM3 (1.0-4.8); MEAN CELL VOLUME 82.9 FL (80.0-100.0); MEAN CORPUSCULAR HEMOGLOBIN 28.6 PG (27.0-34.0); MEAN CORPUSCULAR HGB CONC 34.5 % (32.0-36.0); MEAN PLATELET VOLUME 6.6 FL (7.0-11.0); MONO % 7.7 % (0.0-8.0); MONOCYTE # 0.4 TH/MM3 (0-0.9); NEUT % 73.9 % (16.0-70.0); PLATELET COUNT 391 TH/MM3 (150-450); RED BLOOD COUNT 3.46 MIL/MM3 (4.00-5.30); RED CELL DISTRIBUTION WIDTH 17.6 % (11.6-17.2); WHITE BLOOD COUNT 5.1 TH/MM3 (4.0-11.0)
[2018-02-09] MEDS: SODIUM CHLORIDE 0.9% FLUSH 10 ML FLUSH IV FLUSH SCH ×2 (08:58→21:42)
[2018-02-09] MEDS: FERROUS SULFATE 325 MG (65 MG ELEMENTAL IRON) TAB PO SCH (08:58)
[2018-02-09] MEDS: DOCUSATE SODIUM 100 MG CAP PO SCH ×2 (08:58→21:00)
[2018-02-09 08:59] LABS: CALCIUM 8.9 MG/DL (8.5-10.1); CREATININE 0.6 MG/DL (0.50-1.00)
[2018-02-09] MEDS: FOLIC ACID 1 MG TAB PO SCH (08:59)
[2018-02-09] MEDS: clonazePAM 1 MG TAB PO SCH ×2 (08:59→21:41)
[2018-02-09 09:00] LABS: WESTERGREN SEDIMENTATION RATE 117 mm/hr (0-30)
[2018-02-09] MEDS: CYANOCOBALAMIN 1,000 MCG TAB PO SCH (09:00)
[2018-02-09] MEDS: ASCORBIC ACID 500 MG TAB PO SCH (09:01)
[2018-02-09] MEDS ORDERED: diphenhydrAMINE HCL 50 MG/ML VIAL IV PUSH ONE (10:00)
--- NOTE | 2018-02-09 10:21 | PD.CONS ---
History of Present Illness Service Hematology/Oncology Consult Requested By Family [facility] inpatient service. Reason for Consult Mass involving the left lung. High-grade vulvar dysplasia. Anemia; severe associated with cold agglutinins. Primary Care Physician Talat Ugarte MD Diagnoses: History of Present Illness Chief Complaint: 1. Difficulty breathing with minimal exertion. 2. 35 pound weight loss which was unintended over the past 6 months. 3. Mass involving the left side of the vulva which has been present for the past 4 years. History of presenting illness: Ms. Sandoval is a 57-year-old female with an extensive past history of tobaccoism, she reports smoking about a pack a day for the past 38 years. The patient reports undergoing a preoperative workup for surgical management of high -grade vulvar dysplasia with Dr. Mary Hoyos of gynecologic oncology as a part of that workup she underwent baseline blood work including CBC and a chest x- ray. She was noted on chest x-ray to have a left lung mass measuring up to 5 cm and the CBC revealed severe anemia. The patient was asked to come in to the emergency department for further workup and management. Hemoglobin is noted to be 6 g/dL, repeat chest x-ray revealed persistence of the left lung mass. The oncology service has been asked to see her for further workup and management. Review of Systems Constitutional: COMPLAINS OF: Weight loss (Approximately 35 pounds.), Change in appetite (Generally decreased appetite), DENIES: Diaphoretic episodes, Fatigue, Fever, Weight gain, Chills, Dizziness, Night Sweats Endocrine: DENIES: Abnorml menstrual pattern, Heat/cold intolerance, Polydipsia , Polyuria, Polyphagia Eyes: DENIES: Blurred vision, Diplopia, Eye inflammation, Eye pain, Vision loss , Photosensitivity, Double Vision Ears, nose, mouth, throat: COMPLAINS OF: Hoarseness, DENIES: Tinnitus, Hearing loss, Vertigo, Nasal discharge, Oral lesions, Throat pain, Ear Pain, Running Nose, Epistaxis, Sinus Pain, Toothache, Odynophagia Respiratory: COMPLAINS OF: Cough, Shortness of breath, DENIES: Apneas, Snoring , Wheezing, Hemoptysis, Sputum production Cardiovascular: COMPLAINS OF: Palpitations, DENIES: Chest pain, Syncope, Dyspnea on Exertion, PND, Lower Extremity Edema, Orthopnea, Claudication Gastrointestinal: COMPLAINS OF: Anorexia, DENIES: Abdominal pain, Black stools , Bloody stools, Constipation, Diarrhea, Nausea, Vomiting, Difficulty Swallowing Genitourinary: COMPLAINS OF: Abnormal vaginal bleeding (Has a vaginal mass), Dyspareunia, DENIES: Dysmenorrhea, Sexual dysfunction, Urinary frequency, Urinary incontinence, Urgency, Dysuria, Nocturia, Vaginal discharge Musculoskeletal: DENIES: Joint pain, Muscle aches, Stiffness, Joint Swelling, Back pain, Neck pain Integumentary: DENIES: Abnormal pigmentation, Pruritus, Nail changes, Breast masses, Breast skin changes, Nipple discharge Hematologic/lymphatic: DENIES: Bruising, Lymphadenopathy Immunologic/allergic: DENIES: Eczema, Urticaria Neurologic: DENIES: Abnormal gait, Headache, Localized weakness, Paresthesias, Seizures, Speech Problems, Tremor, Poor Balance Psychiatric: COMPLAINS OF: Anxiety, Confusion, Mood changes, Depression, Agitation, DENIES: Hallucinations, Suicidal Ideation, Homicidal Ideation, Delusions Except as stated in HPI: all other systems reviewed are Neg (Vulvar mass on the left side.) Past Family Social History Allergies: Coded Allergies: acetaminophen (Unverified Allergy, Severe, 02/07/18) STOMACH PAIN divalproex sodium (Unverified Allergy, Severe, Anaphylaxis, 02/07/18) erythromycin base (Unverified Allergy, Severe, VOMITING, 02/07/18) penicillin G (Unverified Allergy, Severe, PASS OUT, 02/07/18) propoxyphene (Unverified Allergy, Severe, 02/07/18) STOMACH PAIN shellfish derived (Verified Allergy, Severe, 02/09/18) hydrocodone (Unverified Allergy, Mild, VOMITING, 02/07/18) iodine (Unverified Allergy, Unknown, 02/07/18) potassium iodide (Unverified Allergy, Unknown, 02/07/18) povidone-iodine (Unverified Allergy, Unknown, 02/07/18) sodium iodide (Unverified Allergy, Unknown, 02/07/18) sodium iodide (Unverified Allergy, Unknown, 02/07/18) Past Medical History High-grade vulvar dysplasia Left lung mass Hemolytic anemia associated with cold agglutinins Ongoing tobaccoism Asthma COPD Anxiety Reported history of bipolar disorder Hypertension Osteoporosis Hypothyroidism Past Surgical History Surgery for vulvar dysplasia in the past; LEEP. EGD and colonoscopy Active Ordered Medications Tylenol 325 mg p.o. every 4 as needed for pain Vitamin C 500 mg p.o. daily Dulcolax suppository 10 mg per rectum as needed daily for severe constipation Klonopin 1 mg p.o. twice daily Vitamin B12 1000 mcg p.o. daily. Diphenhydramine 50 mg IV 1 Hydrocortisone 60 mg IV 1 Senna Colace Ferrous sulfate 325 mg p.o. daily Folic acid 1 mg p.o. daily Levothyroxine 50 mcg p.o. daily Family History Mother recently at the age of 94 Father at the age of 52 of a sudden heart attack. Brother at a young age of complications of hypothyroidism. Social History Patient is , she lives at home with her , they have been together since 1984. The patient was previously before that. 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 She reports smoking a pack a day for the past 30 years. She previously was a drug abuser. She recently lost her son to IV drug abuse. Physical Exam Vital Signs Vital Signs Date Time Temp Pulse Resp B/P (MAP) Pulse Ox O2 Delivery O2 Flow Rate FiO2 02/09/18 08:05 97 21 02/09/18 05:10 97.5 73 20 83/53 (63) 96 02/09/18 04:00 75 02/09/18 01:14 97.9 80 20 91/45 (60) 97 02/08/18 20:00 97.1 74 20 81/46 (58) 95 02/08/18 16:00 98.1 52 16 88/49 (62) 95 02/08/18 12:10 68 82/52 (62) 02/08/18 11:59 98.0 70 16 77/48 (58) 97 Physical Exam GENERAL: Patient is a middle-aged lady, she is short, thin and near cachectic appearing, she has a very anxious demeanor. She is heavily tattooed. SKIN: No rashes, ecchymoses or lesions. Cool and dry. Heavily tattooed HEAD: Atraumatic. Normocephalic. No temporal or scalp tenderness. Temporal muscle wasting EYES: Pupils equal round and reactive. Extraocular motions intact. No scleral icterus. No injection or drainage. ENT: Nose without bleeding, purulent drainage or septal hematoma. Throat without erythema, tonsillar hypertrophy or exudate. Uvula midline. Airway patent. NECK: Trachea midline. No JVD or lymphadenopathy. Supple, nontender, no meningeal signs. CARDIOVASCULAR: Regular rate and rhythm without murmurs, gallops, or rubs. RESPIRATORY: Good air movement bilaterally, prolonged expiratory phase, no wheezing or rhonchi. GASTROINTESTINAL: Thin abdomen, soft and nontender no palpable organ enlargement. MUSCULOSKELETAL: Generally decreased muscle mass, tone and strength. NEUROLOGICAL: Awake and alert. Cranial nerves II through XII intact. Motor and sensory grossly within normal limits. Five out of 5 muscle strength in all muscle groups. Normal speech. Laboratory Laboratory Tests Test 02/08/18 13:45 02/09/18 07:05 Urine Color YELLOW Urine Turbidity CLEAR Urine pH 7.5 Urine Specific Eads 1.018 Urine Protein TRACE Urine Glucose (UA) NEG Urine Ketones NEG Urine Occult Blood NEG Urine Nitrite NEG Urine Bilirubin NEG Urine Urobilinogen 2.0 Urine Leukocyte Esterase NEG Urine RBC 1 Urine WBC 1 Urine Squamous Epithelial Cells <1 Microscopic Urinalysis Comment CULT NOT INDICATED White Blood Count 5.1 Red Blood Count 3.46 Hemoglobin 9.9 Hematocrit 28.7 Mean Corpuscular Volume 82.9 Mean Corpuscular Hemoglobin 28.6 Mean Corpuscular Hemoglobin Concent 34.5 Red Cell Distribution Width 17.6 Platelet Count 391 Mean Platelet Volume 6.6 Neutrophils (%) (Auto) 73.9 Lymphocytes (%) (Auto) 14.4 Monocytes (%) (Auto) 7.7 Eosinophils (%) (Auto) 3.1 Basophils (%) (Auto) 0.9 Neutrophils # (Auto) 3.7 Lymphocytes # (Auto) 0.7 Monocytes # (Auto) 0.4 Eosinophils # (Auto) 0.2 Basophils # (Auto) 0.0 CBC Comment DIFF FINAL Differential Comment Erythrocyte Sedimentation Rate 117 Blood Urea Nitrogen 10 Creatinine 0.60 Random Glucose 83 Calcium Level 8.9 Sodium Level 141 Potassium Level 3.8 Chloride Level 106 Carbon Dioxide Level 26.0 Anion Gap 9 Estimat Glomerular Filtration Rate 103 C-Reactive Protein 15.00 Result Diagram: 02/09/18 0702/09/18 07 Imaging Chest x-ray dated 02/08/2018: Large soft tissue mass involving the left lung. Differential diagnosis includes metastatic disease or primary bronchogenic carcinoma. Assessment and Plan Assessment and Plan Patient is a 57-year-old female with an extensive past history of tobaccoism, recent diagnosis of high-grade vulvar dysplasia who is undergoing a preoperative workup for surgical resection. As part of the workup she was recommended chest x-ray and CBC. On CBC she was noted to have severe anemia which is symptomatic and on chest x-ray she was found to have a mass involving the left lung. She was advised to come in to the emergency department for further workup and management. Her symptoms include unintended weight loss of approximately 35 pounds over the past several months, exertional dyspnea and general failure to thrive. The patient does have a history of hemolytic anemia associated with cold agglutinins antibodies, she had previously been evaluated by one of my associates but this was about 10 years ago. Plan: 1. Mass involving the left lung: Obtain CT scan of the chest abdomen pelvis with IV contrast. This will help further understand the lesion in the left lung and any associated smaller lesions which were not noted on x-ray. She will eventually require a biopsy of a industrial relations representative lesion. 2. Cold agglutinins hemolytic anemia: She was transfused 2 units packed red blood cells with improvement in her hemoglobin hematocrit. I will obtain LDH and haptoglobin levels as well as quantitative immunoglobulins and serum protein electro pheresis. 3. Reported history of iodine allergy: Patient tells me she ate snow crabs at the age of 23 and had a bad reaction which included nausea and vomiting and acute illness. She was advised never to have iodine in any form ever again by her then PCP. We acknowledged that there can be some cross reactivity with iodine-containing dye such as CT contrast and some forms of shellfish. I therefore recommended hydrocortisone 60 mg IV 1 to be delivered at least 60 minutes prior to IV contrast injection as well as Benadryl prior to IV contrast injection. This was discussed with the patient's nurse as well as a dental technologist. The oncology service to follow along with you. Discussed Condition With The patient. Patient's nurse. Alfred Davis MD Feb 09, 2018 10:21
[2018-02-09] MEDS ORDERED: HYDROCORTISONE SOD SUCCINATE 100 MG VIAL IV PUSH ONE (10:30)
--- NOTE | 2018-02-09 11:47 | HHI.FPPN ---
Subjective Remarks This morning, she feels overwhelmed. She was talking about the loss of her son as well as varying her mother. Physically, she denies any shortness of breath, chest pain, feeling lightheaded, or being in pain. She feels better since receiving 3 units of packed red blood cells. (John Salgado MD, R3) Objective Vitals Vital Signs Date Time Temp Pulse Resp B/P (MAP) Pulse Ox O2 Delivery O2 Flow Rate FiO2 02/09/18 08:05 97 21 02/09/18 05:10 97.5 73 20 83/53 (63) 96 02/09/18 04:00 75 02/09/18 01:14 97.9 80 20 91/45 (60) 97 02/08/18 20:00 97.1 74 20 81/46 (58) 95 02/08/18 16:00 98.1 52 16 88/49 (62) 95 02/08/18 12:10 68 82/52 (62) 02/08/18 11:59 98.0 70 16 77/48 (58) 97 I/O 02/08/18 02/08/18 02/08/18 02/09/18 02/09/18 02/09/18 07:00 15:00 23:00 07:00 15:00 23:00 Intake Total 420 ml 1300 ml Balance 420 ml 1300 ml Intake Oral 1300 ml Packed Cells 400 ml Blood Product IV Normal Saline Flush 20 ml # Voids 5 (John Salgado MD, R3) Result Diagram: 02/09/18 0705 02/09/18 0705 Imaging Last 72 hours Impressions Chest X-Ray 02/08/18 0000 Signed Impressions: Service Date/Time: Thursday, February 08, 2018 11:02 - CONCLUSION: Large soft tissue mass in the left mid lung. The differential diagnosis includes metastatic disease and primary bronchogenic carcinoma. Gabino Peterson MD Objective Remarks GENERAL: No acute distress, breathing comfortably on room air SKIN: Warm and dry. HEAD: Normocephalic. EYES: No scleral icterus. No injection or drainage. NECK: Supple, trachea midline. No JVD or lymphadenopathy. CARDIOVASCULAR: Irregular rate and rhythm. Difficult to discern irregular rhythm vs murmur RESPIRATORY: Coarse breath sounds throughout all lung brumfield. Wet sounding cough during exam. GASTROINTESTINAL: Abdomen soft, non-tender, nondistended. MUSCULOSKELETAL: No cyanosis, or edema. BACK: Nontender without obvious deformity. No CVA tenderness. (John Salgado MD, R3) A/P Assessment and Plan Patient is a 57-year-old female admitted for acute on chronic anemia discovered in outpatient lab; history of anemia of unknown etiology since 1994. Patient does have a recent vulvar malignancy diagnosis and has never had a colonoscopy. Discharge Planning pending stabilization of H&H and cardiac w/u (John Salgado MD, R3) Attending Attestation Pt. seen, examined and discussed with Quan Lentz and Naomi. This unfortunate 57 yo female, lifelong smoker, with vulvar malignancy scheduled for resection in the near future was found to be significantly anemic and was sent to OBS for transfusion. Pre-op workup chest x -ray revealed a 5 cm likely malignant tumor left mid-lung. She did feel better with 3 units prbc transfusion. Has of snow-crab reaction in remote past. Recent significant losses in her family, mother and son. Financial issues abound. She feels overwhelmed. Reports weight loss over the past few months which she attributed to stress. Exam revealed a very thin female with no clubbing of nails, coarse breath sounds on auscultation with significant harsh cough. I agree with exam findings as noted above. Appreciate assistance/recommendations from Dr. Davis. CT with contrast of chest , abdomen and pelvis today showed soft tissue mass involving all three lobes of left lung at hilum, which would be amenable to CT guided core biopsy. Likely bronchogenic in origin. CT abdomen and pelvis shows no evidence of mets or adenopathy. (Alejandra Ignacio MD) Problem List: (1) Irregular heart rate ICD Codes: I49.9 - Cardiac arrhythmia, unspecified Status: Acute Plan: Regular rate and rhythm on physical exam f/u telemetry f/u EKG (2) Lung mass ICD Codes: R91.8 - Other nonspecific abnormal finding of lung field Status: Chronic Plan: Per chart review, 5 cm lung mass discovered on chest x-ray last week. Seen and evaluated by Dr. Davis with oncology. He recommended getting a CT of the chest and pelvis with IV contrast. He also recommended getting cold agglutinins, LDH, and haptoglobin levels as well as a quantitative immunoglobulin and serum protein electrophoresis. We will follow-up these results. We appreciate his assistance. Primary team and [facility] Worker/Onc suspecting primary lung cancer, and recommended follow- up PET CT as outpatient. (3) Anemia of unknown etiology ICD Codes: D64.9 - Anemia, unspecified Status: Acute Plan: acute on chronic, history of B12 and folate deficiencies Postmenopausal with no vaginal bleeding Recent diagnosis of carcinoma in situ, vulvar Hereditary spherocytosis in family Pt s/p 3 U PRBCs -feeling better since this transfusion. Hemoglobin corrected from 6.2-10.9. f/u hemoccult Iron studies - Severe anemia of chronic disease; likely related to malignancy Iron: 20 (SEVERELY LOW) TIBC: 179 - abnormally low % saturation: 11 - abnormally low ferritin (acute phase reactant)- 1500 - abnormally high CRP elevated to 15.00. ESR elevated at 117. Reticulocyte normal B12 normal Folate slightly low - Folate deficiency - Add Folic 1mg daily x 3 weeks (or indefinitely until resolved) Pt has refused bone marrow exam in past, has refused colonoscopy in past (will consider after vulvar surgery) (4) COPD (chronic obstructive pulmonary disease) ICD Codes: J44.9 - Chronic obstructive pulmonary disease, unspecified Status: Chronic Plan: COPD not apparently on any controller meds. Will monitor symptoms and give treatment as needed. Asymptomatic with normal oxygenation at admission. (5) Vitamin B 12 deficiency ICD Codes: E53.8 - Vitamin B 12 deficiency Status: Chronic Plan: Per patient does have history of B12 deficiency which could lead to anemia over time. B12 normal Continue B12 supplementation (6) Vulvar cancer ICD Codes: C51.9 - Malignant neoplasm of vulva, unspecified Status: Acute Plan: Workup currently in progress with Dr. Hoyos. Anemia was found on preoperative lab work. Management to continue as outpatient. (7) Hypothyroidism ICD Codes: E03.9 - Hypothyroidism Status: Chronic Plan: Chronic hypothyroidism, mild based on dose of levothyroxine 88 mcg daily. Will continue while inpatient. TSH low on 02/06 (.18) - Decrease to 50mcg daily (8) Bipolar disorder ICD Codes: F31.9 - Bipolar disorder Status: Chronic Plan: Patient states she has a history of bipolar disorder and is allergic to all the meds. She is not on any meds. No acute exacerbation noted. Will monitor symptoms. (9) Anxiety disorder ICD Codes: F41.9 - Anxiety disorder Status: Chronic Plan: Patient has chronic anxiety disorder and on Klonopin as needed at home. We will continue with close monitoring while inpatient. Patient did require Ativan 1 mg IV push once in the ED on 02/07 (10) Fluids/Electrolytes/Nutrition/Prophylaxis Status: Acute Plan: Fluids: PO hydration Electrolytes: monitor and replete as needed Nutrition: regular DVT Prophylaxis: Early ambulation. Bilateral SCDs. GI Prophylaxis: Not indicated. Stool regimen per protocol for constipation prevention. PRN anti-HTN: Clonidine 0.1mg PO PRN for SBP > 180/ and/or DBP > 100 She has noted to have a Darvocet allergy, if patient does have pain will likely need to treat with as opiate. Currently not in any pain. Does also have hydrocodone allergy. Anticipate discharge within the next 1-2 days after a full workup and stabilization of symptomatic anemia. Patient declines physical therapy consultation during this hospitalization. Activity out of bed with assistance only at this time. Seen and discussed with Dr. Alejandra Ignacio. (John Salgado MD, R3) Problem Qualifiers (1) COPD (chronic obstructive pulmonary disease): Qualified Codes: J44.9 - Chronic obstructive pulmonary disease, unspecified (2) Hypothyroidism: Qualified Codes: E03.9 - Hypothyroidism, unspecified (3) Bipolar disorder: Qualified Codes: F31.9 - Bipolar disorder, unspecified John Salgado MD, R3 Feb 09, 2018 11:47 Alejandra Ignacio MD Feb 09, 2018 13:41
[2018-02-09] MEDS ORDERED: IOHEXOL 350 MG/ML 10 ML VIAL (for RAD DIAG) IVCONTRAST ONE (12:13)
--- NOTE | 2018-02-09 12:27 | RADRPT ---
EXAM DATE/TIME: 02/09/2018 11:58 [facility] COMPARISON: CHEST PA & LAT, February 08, 2018, 11:02. INDICATIONS : Staging of vulvar cancer, left lung mass seen on chest x-ray. Evaluate for metastasis. IV CONTRAST: 75 cc Omnipaque 350 (iohexol) IV ; Cumulative dose for multiple exams. RADIATION DOSE: 3.61 CTDIvol (mGy) ; Combined studies MEDICAL HISTORY : Carcinoma, vulva. Hypothyroidism. SURGICAL HISTORY : None. ENCOUNTER: Initial ACUITY: 1 day PAIN SCALE: 0/10 LOCATION: Bilateral chest TECHNIQUE: Volumetric scanning of the chest was performed. Using automated exposure control and adjustment of t he mA and/or kV according to patient size, radiation dose was kept as low as reasonably achievable to obtain optimal diagnostic quality images. DICOM format image data is available electronically for review and comparison. Follow-up recommendations for detected pulmonary nodules are based at a minimum on nodule size and pa tient risk factors according to Fleischner Society Guidelines. FINDINGS: LUNGS: There is no consolidation or pneumothorax. There is underlying emphysema. A large lobular soft tissue mass is noted in the central left mid lung and involves portions of the major fissure, left upper lo be, lingula and superior segment of the left lower lobe. The mass measures up to 6 x 5.5 x 5.1 cm in diameter. PLEURA: There is no pleural thickening or pleural effusion. MEDIASTINUM: The heart and great vessels demonstrate no acute abnormality. There is no mediastinal or hilar lymph adenopathy. The mass abuts the left lateral hilum. AXILLAE: Within normal limits. No lymphadenopathy. SKELETAL: Within normal limits for patient age. MISCELLANEOUS: The visualized upper abdominal organs demonstrate no acute abnormality. CONCLUSION: 1. Single large soft tissue mass central left lung which appears to involve all 3 lobes. This is most consistent with a primary bronchogenic carcinoma and would be amenable to CT-guided core biopsy. The mass abuts the left hilum. 2. No evidence of separate mediastinal or hilar adenopathy. Gabino Peterson MD on February 09, 2018 at 12:20 Board Certified Radiologist. This report was verified electronically.
--- NOTE | 2018-02-09 12:30 | RADRPT ---
EXAM DATE/TIME: 02/09/2018 11:58 [facility] COMPARISON: No previous studies available for comparison. INDICATIONS : Staging of vulvar cancer, abnormal chest x-ray demonstrating a large left lung mass and probable prim santana bronchogenic carcinoma on CT.. IV CONTRAST: 75 cc Omnipaque 350 (iohexol) IV ; Cumulative dose for multiple exams. ORAL CONTRAST: No oral contrast ingested. RADIATION DOSE: 3.61 CTDIvol (mGy) ; Combined studies MEDICAL HISTORY : Carcinoma, vulva. Hypothyroidism. SURGICAL HISTORY : None. ENCOUNTER: Initial ACUITY: 1 day PAIN SCALE: 0/10 LOCATION: Bilateral abdomen TECHNIQUE: Volumetric scanning of the abdomen and pelvis was performed. Using automated exposure control and ad justment of the mA and/or kV according to patient size, radiation dose was kept as low as reasonably achievable to obtain optimal diagnostic quality images. DICOM format image data is available electro nically for review and comparison. FINDINGS: LOWER LUNGS: The visualized lower lungs are clear. LIVER: Homogeneous density without lesion. There is no dilation of the biliary tree. No calcified gallston es. SPLEEN: Normal size without lesion. PANCREAS: Within normal limits. KIDNEYS: Normal in size and shape. There is no mass, stone or hydronephrosis. ADRENAL GLANDS: Within normal limits. VASCULAR: There is no aortic aneurysm. BOWEL/MESENTERY: No oral contrast was given limiting the sensitivity. The stomach, small bowel, and colon demonstrate no acute abnormality. There is no free intraperitoneal air or fluid. ABDOMINAL WALL: Within normal limits. RETROPERITONEUM: There is no lymphadenopathy. BLADDER: No wall thickening or mass. REPRODUCTIVE: Within normal limits. INGUINAL: There is no lymphadenopathy or hernia. MUSCULOSKELETAL: Within normal limits for patient age. CONCLUSION: 1. No evidence of metastatic disease. 2. No evidence of adenopathy. 3. Please see chest CT for further findings. Gabino Peterson MD on February 09, 2018 at 12:25 Board Certified Radiologist. This report was verified electronically.
[2018-02-09] MEDS: BUDESONIDE-FORMOTEROL 160/4.5 MCG INHALER INH SCH ×2 (13:00→21:00)
[2018-02-09] MEDS ORDERED: RESP: ALBUTEROL 2.5 MG/IPRATROPIUM 0.5 MG NEB (PRN) NEB (13:00)
[2018-02-09] MEDS: RESP: ALBUTEROL 2.5 MG/IPRATROPIUM 0.5 MG NEB (SCH) NEB ×3 (13:27→19:54)
--- NOTE | 2018-02-09 13:34 | MB ---
cc: Ingrid Boo MD DATE: 02/09/2018 HISTORY OF PRESENT ILLNESS: The patient is a 57-year-old female with a past medical history of recent high grade vulvar dysplasia diagnosis, hemolytic anemia associated with cold agglutinins, active tobacco use, asthma, hypertension, osteoporosis, hypothyroidism, and anxiety disorder. She was undergoing a preop workup for surgical management of high grade vulvar dysplasia and was found to have a low hemoglobin 6 grams per deciliter and had a left lung mass on a chest x-ray. The patient was told to go to the ED for further evaluation and management. Her laboratory data in the ER showed hemoglobin 6.2 with a hematocrit 18.8 and chest x-ray showed a large soft tissue mass in the left midlung. She subsequently underwent CT scan of the chest which showed a single large soft tissue mass, central left lung consistent with primary bronchogenic carcinoma. No evidence of any mediastinal or hilar adenopathy. On further history, the patient states that she lost 30 pounds in 5 months and reports a poor appetite. She is an active smoker where she smokes less than a pack a day for about 30 years. She uses Ventolin at home for shortness of breath without any significant relief. She denies any constitutional symptoms. In addition, she denies any hemoptysis, hematemesis. Pulmonary medicine was consulted regarding abnormal CT chest. The patient denies any nausea, vomiting or any abdominal pain. PAST MEDICAL HISTORY: Significant for chronic anemia, bipolar disorder, asthma, hypertension, hypothyroidism, osteoporosis, anxiety disorder. PAST SURGICAL HISTORY: Previous surgery for vulvar dysplasia, previous EGD and colonoscopy. FAMILY HISTORY: Mother recently in August at age of 94. Father at age 52 with a sudden heart attack. Son on 01/29/2018 due to drugs. SOCIAL HISTORY: The patient smokes less than a pack of cigarettes per day and has been a smoker for 30 years. MEDICATIONS: Reported medications include: Synthroid, clonazepam, Ventolin, vitamin B12. REVIEW OF SYSTEMS: As per HPI. Rest of review of systems is unremarkable. PHYSICAL EXAMINATION: GENERAL: A 57-year-old female lying in bed in no acute respiratory distress on room air oxygen. VITAL SIGNS: Temperature 97.9, pulse of 60, respiratory rate of 18, blood pressure 105/54, saturation 96% on room air. HEENT: Atraumatic, normocephalic. Pupils are equal, round, reactive to light and accommodation. Extraocular muscles intact. Conjunctivae pink. Nonicteric sclerae. Oral mucosa within normal. NECK: Supple. No JVD, adenopathy, thyromegaly. Trachea in the midline. HEART: Regular rate and rhythm. Normal S1, S2, no murmurs, rubs or gallops noted. LUNGS: Bilateral equal air entry. No rales or wheezing. ABDOMEN: Soft, nontender. No distention. Positive bowel sounds. EXTREMITIES: No cyanosis, clubbing, edema. NEUROLOGIC: No focal sensory deficit. LABORATORY DATA: Sodium 141, potassium 3.8, chloride 106, CO2 26, BUN 10, creatinine 0.60, glucose 83. WBC 5.1, hemoglobin 9.9, hematocrit 28, platelet count of 391. INR 1.2, PT 12.3, PTT 34.8. RADIOGRAPHIC STUDIES: CT chest showed large soft tissue mass, central left lung. A CT abdomen and pelvis showed no evidence of any metastatic disease or any evidence of adenopathy. IMPRESSION: 1. Large left lung mass measures 6 x 5.5 x 5.1 cm in diameter, likely bronchogenic carcinoma. 2. Active tobacco use. 3. Likely chronic obstructive pulmonary disease. 4. Cold agglutinin hemolytic anemia. 5. High grade vulvar dysplasia. 6. History of hypertension. 7. Hypothyroidism. 8. History of bipolar disorder, anxiety disorder. RECOMMENDATIONS: 1. CT scan of the chest reviewed and discussed with the patient. Will proceed with a CT guided lung biopsy, likely bronchogenic carcinoma. 2. Oxygen p.r.n. to maintain sats above 92%. 3. Bronchodilators. We will place on DuoNeb q. 6 hours plus q. 2 hours p.r.n. for shortness of breath and will add Symbicort 160/4.5 two puffs q. 12 hours. 4. Pulmonary function test to assess the severity of her obstructive lung disease. 5. The patient is counseled regarding smoking cessation. 6. Monitor CBC s/p transfusion 3u PRBC. Further transfusion per Hematology. 7. CT abdomen and pelvis was obtained as well, which showed no evidence of any metastatic disease. 8. Further recommendations will be based on the hospital course. Thank you for the consultation and allowing us to participate in this patient's care. MD ABDULAZIZ Bullock , 12:55 PM , 01:33 PM [facility]
[2018-02-10] VITALS (11 sets, daily range): BP systolic 84–101; BP diastolic 41–60; PULSE 45–85; RESP 14–18; TEMP 97.5–98.4; O2SAT 94–96
--- NOTE | 2018-02-10 00:48 | EKG ---
Date Performed: 02/08/2018 Time Performed: 11:37:57 PTAGE: 57 years EKG: Sinus rhythm POSSIBLE RIGHT VENTRICULAR CONDUCTION DELAY BORDERLINE ECG NO PREVIOUS TRACING DOCTOR: Pedro Gan Interpretating Date/Time 02/10/2018 00:47:17
[2018-02-10] MEDS: RESP: ALBUTEROL 2.5 MG/IPRATROPIUM 0.5 MG NEB (SCH) NEB ×4 (03:21→20:56)
[2018-02-10] MEDS: LEVOTHYROXINE SODIUM 50 MCG TAB PO SCH (06:00)
[2018-02-10 07:37] LABS: AUTOMATED NEUTROPHIL # 5.5 TH/MM3 (1.8-7.7); BASOPHIL % 0.6 % (0.0-2.0); EOSINOPHIL # 0.1 TH/MM3 (0-0.4); HEMOGLOBIN 10.2 GM/DL (11.6-15.3); LYMPH % 15.3 % (9.0-44.0); LYMPHOCYTE # 1.1 TH/MM3 (1.0-4.8); MEAN CELL VOLUME 85.3 FL (80.0-100.0); MEAN CORPUSCULAR HGB CONC 32.9 % (32.0-36.0); MEAN PLATELET VOLUME 6.5 FL (7.0-11.0); MONO % 8.1 % (0.0-8.0); MONOCYTE # 0.6 TH/MM3 (0-0.9); PLATELET COUNT 385 TH/MM3 (150-450); RED BLOOD COUNT 3.63 MIL/MM3 (4.00-5.30); RED CELL DISTRIBUTION WIDTH 17.9 % (11.6-17.2); WHITE BLOOD COUNT 7.3 TH/MM3 (4.0-11.0)
--- NOTE | 2018-02-10 08:14 | HHI.FPPN ---
Subjective Remarks Pt seen and examined this morning. No acute events overnight. Pt is anxious about having lung biopsy preformed later today. She denies feeling acutely short of breath, chest pain, abdominal pain. She feels overwhelmed with having recently lost her son and mother, and she has been caring for her who has cancer. She has no additional acute concerns at this time. (Jessie Beavers MD R3) Objective Vitals Vital Signs Date Time Temp Pulse Resp B/P (MAP) Pulse Ox O2 Delivery O2 Flow Rate FiO2 02/10/18 06:42 97.8 85 14 87/50 (62) 96 02/10/18 03:00 66 02/10/18 00:43 97.6 45 16 93/54 (67) 95 02/09/18 21:43 97.8 60 16 92/51 (65) 96 02/09/18 16:21 97.9 77 18 91/58 (69) 95 02/09/18 12:16 97.9 58 18 105/54 (71) 96 02/09/18 11:30 60 I/O 02/09/18 02/09/18 02/09/18 02/10/18 02/10/18 02/10/18 07:00 15:00 23:00 07:00 15:00 23:00 Intake Total 1300 ml Balance 1300 ml Intake Oral 1300 ml # Voids 5 (Jessie Beavers MD R3) Result Diagram: 02/10/18 0654 02/09/18 0705 Objective Remarks GENERAL: Thin female, appearing older than stated age. No acute distress, breathing comfortably on room air SKIN: Warm and dry. HEAD: Normocephalic. EYES: No scleral icterus. No injection or drainage. NECK: Supple, trachea midline. No JVD or lymphadenopathy. CARDIOVASCULAR: Regular rate and rhythm, no murmur appreciated. RESPIRATORY: Clear to auscultation, no significant wheezes rales or rhonchi. Good air movement. GASTROINTESTINAL: Abdomen soft, non-tender, nondistended. +bowel sounds. MUSCULOSKELETAL: No cyanosis, or edema. BACK: Nontender without obvious deformity. (Jessie Beavers MD R3) A/P Assessment and Plan Patient is a 57-year-old female admitted for acute on chronic anemia discovered in outpatient lab; history of anemia of unknown etiology since 1994. Patient does have a recent vulvar malignancy diagnosis and has never had a colonoscopy. She was found to have a large left-sided lung mass. Pt seen and discussed with Dr. Pineda Discharge Planning Anticipate discharge in 1-2 days (Jessie Beavers MD R3) Attending Attestation Patient seen and examined. Case reviewed and discussed with the resident team. Agree with plan of care as discussed with me and documented in the resident note. had discussion with her about her future plans and wishes. she stated categorically "I will never have my lung removed no matter what". she knows she probably has cancer but does not want chemo or radiation either. we discussed hospice potentially but she had recent bad experiences with a SNF that does hospice. she denies any pain and does not want narcotics at this time (Cate Pineda MD) Problem List: (1) Lung mass ICD Codes: R91.8 - Other nonspecific abnormal finding of lung field Status: Chronic Plan: 5 cm lung mass discovered on recent chest x-ray. Chest CT from 02/09/18 shows a single large soft tissue mass of the central left lung which appears to involve all 3 lobes. This is most consistent with a primary bronchogenic carcinoma and would be amenable to CT-guided core biopsy. No evidence of separate mediastinal or hilar adenopathy. Oncology consulted, appreciate recommendations, Dr. aDvis following Anticipate CT guided biopsy later today (2) Irregular heart rate ICD Codes: I49.9 - Cardiac arrhythmia, unspecified Status: Acute Plan: Regular rate and rhythm on physical exam f/u telemetry f/u EKG (3) Anemia of unknown etiology ICD Codes: D64.9 - Anemia, unspecified Status: Acute Plan: H&H stable, continue to monitor acute on chronic, history of B12 and folate deficiencies Postmenopausal with no vaginal bleeding Recent diagnosis of carcinoma in situ, vulvar Hereditary spherocytosis in family Pt s/p 3 U PRBCs -feeling better since this transfusion. Hemoglobin corrected from 6.2-10.9 on 02/08 f/u hemoccult Iron studies - Severe anemia of chronic disease; likely related to malignancy Iron: 20 (SEVERELY LOW) TIBC: 179 - abnormally low % saturation: 11 - abnormally low ferritin (acute phase reactant)- 1500 - abnormally high CRP elevated to 15.00. ESR elevated at 117. Reticulocyte normal B12 normal Folate slightly low - Folate deficiency - Folic 1mg daily x 3 weeks (or until resolved) Pt has refused bone marrow exam in past, has refused colonoscopy in past (will consider after vulvar surgery) (4) COPD (chronic obstructive pulmonary disease) ICD Codes: J44.9 - Chronic obstructive pulmonary disease, unspecified Status: Chronic Plan: COPD not on maintenance medication at home -Duo nebs every 6 hours and every 2 hours as needed for shortness of breath -Symbicort 2 puffs every 12 hours (5) Vitamin B 12 deficiency ICD Codes: E53.8 - Vitamin B 12 deficiency Status: Chronic Plan: Per patient does have history of B12 deficiency B12 normal Continue B12 supplementation (6) Vulvar cancer ICD Codes: C51.9 - Malignant neoplasm of vulva, unspecified Status: Acute Plan: Workup currently in progress with Dr. Hoyos. Anemia was found on preoperative lab work. Management to continue as outpatient. (7) Hypothyroidism ICD Codes: E03.9 - Hypothyroidism Status: Chronic Plan: Chronic hypothyroidism, mild based on dose of levothyroxine 88 mcg daily. Will continue while inpatient. TSH low on 02/06 (.18) - Decrease to 50mcg daily (8) Bipolar disorder ICD Codes: F31.9 - Bipolar disorder Status: Chronic Plan: Patient states she has a history of bipolar disorder and is allergic to all the meds. She is not on any medications currently. Mood stable. Will monitor symptoms. (9) Anxiety disorder ICD Codes: F41.9 - Anxiety disorder Status: Chronic Plan: Patient has chronic anxiety disorder and on Klonopin as needed at home. We will continue with close monitoring while inpatient. Patient did require Ativan 1 mg IV push once in the ED on 02/07 (10) Fluids/Electrolytes/Nutrition/Prophylaxis Status: Acute Plan: Fluids: PO hydration Electrolytes: monitor and replete as needed Nutrition: regular DVT Prophylaxis: Early ambulation. Bilateral SCDs. GI Prophylaxis: Not indicated. Stool regimen per protocol for constipation prevention. PRN anti-HTN: Clonidine 0.1mg PO PRN for SBP > 180/ and/or DBP > 100 She has noted to have a Darvocet allergy, if patient does have pain will likely need to treat with as opiate. Currently not in any pain. Does also have hydrocodone allergy. (Jessie Beavers MD R3) Problem Qualifiers (1) COPD (chronic obstructive pulmonary disease): Qualified Codes: J44.9 - Chronic obstructive pulmonary disease, unspecified (2) Hypothyroidism: Qualified Codes: E03.9 - Hypothyroidism, unspecified (3) Bipolar disorder: Qualified Codes: F31.9 - Bipolar disorder, unspecified Jessie Beavers MD R3 Feb 10, 2018 08:14 Cate Pineda MD Feb 11, 2018 11:41
[2018-02-10 08:25] LABS: ALBUMIN 2.2 GM/DL (3.4-5.0); ALKALINE PHOSPHATASE 101 U/L (45-117); ALT (GPT) 30 U/L (10-53); AST (GOT) 28 U/L (15-37); BICARBONATE 27.4 MEQ/L (21.0-32.0); BLOOD UREA NITROGEN 11 MG/DL (7-18); CALCIUM 8.8 MG/DL (8.5-10.1); CHLORIDE 107 MEQ/L (98-107); CREATININE 0.76 MG/DL (0.50-1.00); GLOMERULAR FILTRATION RATE 79 ML/MIN (>89); GLUCOSE,RANDOM 85 MG/DL (74-106); SODIUM (NA) 141 MEQ/L (136-145); TOTAL BILIRUBIN ADULT 0.5 MG/DL (0.2-1.0); TOTAL PROTEIN 7.3 GM/DL (6.4-8.2)
--- NOTE | 2018-02-10 08:27 | PD.ONC.PN ---
Subjective Subjective Remarks Patient seen and examined, vital signs, labs, medications and imaging studies performed on 02/10/2018 reviewed. Subjectively; patient denies acute complaints, she tells me she is coughing the cough produces phlegm. She is scheduled to undergo CT-guided biopsy of the left lung mass later today. Patient tells me she is considering foregoing therapeutic interventions if a diagnosis of lung carcinoma is confirmed. SHe tells me she feels she has nothing to live for because she recently lost her son, recently lost her mother and her himself is struggling with a diagnosis of advanced cancer. Objective Data Date Time Temp Pulse Resp B/P (MAP) Pulse Ox O2 Delivery O2 Flow Rate FiO2 02/10/18 06:42 97.8 85 14 87/50 (62) 96 02/10/18 03:00 66 02/10/18 00:43 97.6 45 16 93/54 (67) 95 02/09/18 21:43 97.8 60 16 92/51 (65) 96 02/09/18 16:21 97.9 77 18 91/58 (69) 95 02/09/18 12:16 97.9 58 18 105/54 (71) 96 02/09/18 11:30 60 Result Diagram: 02/10/18 0654 02/10/18 0654 Laboratory Results Laboratory Tests Test 02/09/18 12:45 02/10/18 06:54 Haptoglobin 331 MG/DL Lactate Dehydrogenase 163 U/L Total Protein 6.8 GM/DL 7.3 GM/DL White Blood Count 7.3 TH/MM3 Red Blood Count 3.63 MIL/MM3 Hemoglobin 10.2 GM/DL Hematocrit 31.0 % Mean Corpuscular Volume 85.3 FL Mean Corpuscular Hemoglobin 28.0 PG Mean Corpuscular Hemoglobin Concent 32.9 % Red Cell Distribution Width 17.9 % Platelet Count 385 TH/MM3 Mean Platelet Volume 6.5 FL Neutrophils (%) (Auto) 75.0 % Lymphocytes (%) (Auto) 15.3 % Monocytes (%) (Auto) 8.1 % Eosinophils (%) (Auto) 1.0 % Basophils (%) (Auto) 0.6 % Neutrophils # (Auto) 5.5 TH/MM3 Lymphocytes # (Auto) 1.1 TH/MM3 Monocytes # (Auto) 0.6 TH/MM3 Eosinophils # (Auto) 0.1 TH/MM3 Basophils # (Auto) 0.0 TH/MM3 CBC Comment DIFF FINAL Differential Comment Blood Urea Nitrogen 11 MG/DL Creatinine 0.76 MG/DL Random Glucose 85 MG/DL Albumin 2.2 GM/DL Calcium Level 8.8 MG/DL Alkaline Phosphatase 101 U/L Aspartate Amino Transf (AST/SGOT) 28 U/L Alanine Aminotransferase (ALT/SGPT) 30 U/L Total Bilirubin 0.5 MG/DL Sodium Level 141 MEQ/L Potassium Level 3.8 MEQ/L Chloride Level 107 MEQ/L Carbon Dioxide Level 27.4 MEQ/L Anion Gap 7 MEQ/L Estimat Glomerular Filtration Rate 79 ML/MIN Administered Medications Medications (Trade) Dose Ordered Sig/Zach Route PRN Reason Start Time Stop Time Status Last Admin Dose Admin Sodium Chloride (NS Flush) 2 ml BID IV FLUSH 02/07/18 21:00 02/09/18 21:42 Clonazepam (KlonoPIN) 1 mg BID PO 02/07/18 21:00 02/09/18 21:41 Cyanocobalamin (Vitamin B12) 1,000 mcg DAILY PO 02/08/18 09:00 02/09/18 09:00 Folic Acid (Folate) 1 mg DAILY PO 02/08/18 10:00 02/09/18 08:59 Levothyroxine Sodium (Synthroid) 50 mcg DAILY@0600 PO 02/09/18 06:00 02/10/18 06:00 Ferrous Sulfate (Ferrous Sulfate) 325 mg DAILY PO 02/08/18 10:30 02/09/18 08:58 Ascorbic Acid (Vitamin C) 500 mg DAILY PO 02/08/18 10:30 02/09/18 09:01 Docusate Sodium (Colace) 100 mg BID PO 02/08/18 12:00 02/09/18 08:58 Acetaminophen (Tylenol) 325 mg Q4HR PRN PO PAIN SCALE 1 TO 10 02/08/18 14:00 02/08/18 14:45 Albuterol/ Ipratropium (Duoneb Neb) 1 ampule Q6HR NEB NEB 02/09/18 13:00 02/09/18 15:41 Objective Remarks GENERAL: Patient is a middle-aged lady, she is short, thin and near cachectic appearing, she has a very anxious demeanor. She is heavily tattooed. SKIN: No rashes, ecchymoses or lesions. Cool and dry. Heavily tattooed HEAD: Atraumatic. Normocephalic. No temporal or scalp tenderness. Temporal muscle wasting EYES: Pupils equal round and reactive. Extraocular motions intact. No scleral icterus. No injection or drainage. ENT: Nose without bleeding, purulent drainage or septal hematoma. Throat without erythema, tonsillar hypertrophy or exudate. Uvula midline. Airway patent. NECK: Trachea midline. No JVD or lymphadenopathy. Supple, nontender, no meningeal signs. CARDIOVASCULAR: Regular rate and rhythm without murmurs, gallops, or rubs. RESPIRATORY: Good air movement bilaterally, prolonged expiratory phase, no wheezing or rhonchi. GASTROINTESTINAL: Thin abdomen, soft and nontender no palpable organ enlargement. MUSCULOSKELETAL: Generally decreased muscle mass, tone and strength. NEUROLOGICAL: Awake and alert. Cranial nerves II through XII intact. Motor and sensory grossly within normal limits. Five out of 5 muscle strength in all muscle groups. Normal speech. Assessment/Plan Assessment Patient is a 57-year-old female with an extensive past history of tobaccoism, recent diagnosis of high-grade vulvar dysplasia who is undergoing a preoperative workup for surgical resection. As part of the workup she was recommended chest x-ray and CBC. On CBC she was noted to have severe anemia which is symptomatic and on chest x-ray she was found to have a mass involving the left lung. She was advised to come in to the emergency department for further workup and management. Her symptoms include unintended weight loss of approximately 35 pounds over the past several months, exertional dyspnea and general failure to thrive. The patient does have a history of hemolytic anemia associated with cold agglutinins antibodies, she had previously been evaluated by one of my associates but this was about [address] imaging performed on 02/09/2018 indicates an approximate 6 cm mass involving the central portion of the left lung, there appears to be no enlargement of hilar or mediastinal lymph nodes or evidence of metastatic disease within the abdomen or pelvis. Bony structures appear to be intact. What is concerning however is that the lesion in the left lung seems to traverse the fissure between the left upper and lower lobes and seems to involve both lobes, the tumor also seems to be quite central; abutting the left main bronchus. From a surgical standpoint it appears should she undergo complete resection it may require a left pneumonectomy. A formal evaluation by thoracic surgery will be needed once tissue diagnosis is established. Plan 1. Large mass involving the left lung with involvement of both the upper and lower lobes; the mass appears to be contiguous. CT-guided biopsy later today. She will need multidisciplinary review of her imaging studies and pathology before definitive therapeutic recommendations are made. If she is not a candidate for surgical resection, she may be candidate for definitive concurrent chemoradiotherapy. 2. Cold agglutinins hemolytic anemia: Hemoglobin hematocrit stable at this time. Serum protein electrophoresis is pending. She appears not to have evidence of active hemolysis based on normal LDH levels, haptoglobin is elevated. Haptoglobin elevation is likely related to acute phase reactant/ inflammation. The oncology service to follow along with you. Emotional support offered. Alfred Davis MD Feb 10, 2018 08:27
[2018-02-10] MEDS: BUDESONIDE-FORMOTEROL 160/4.5 MCG INHALER INH SCH ×2 (09:00→22:46)
[2018-02-10] MEDS: ASCORBIC ACID 500 MG TAB PO SCH (09:28)
[2018-02-10] MEDS: clonazePAM 1 MG TAB PO SCH ×2 (09:28→21:35)
[2018-02-10] MEDS: FERROUS SULFATE 325 MG (65 MG ELEMENTAL IRON) TAB PO SCH (09:28)
[2018-02-10] MEDS: CYANOCOBALAMIN 1,000 MCG TAB PO SCH (09:28)
[2018-02-10] MEDS: DOCUSATE SODIUM 100 MG CAP PO SCH ×2 (09:28→21:37)
[2018-02-10] MEDS: SODIUM CHLORIDE 0.9% FLUSH 10 ML FLUSH IV FLUSH SCH ×2 (09:28→21:35)
[2018-02-10] MEDS: FOLIC ACID 1 MG TAB PO SCH (09:28)
[2018-02-10] MEDS ORDERED: MIDAZOLAM HCL 2 MG/2 ML VIAL ONE (14:19)
--- NOTE | 2018-02-10 15:04 | RADRPT ---
EXAM DATE/TIME: 02/10/2018 14:28 [facility] COMPARISON: No previous studies available for comparison. INDICATIONS : Left lung mass. SEDATION TIME: 30 minutes BIOPSY SITE: Left MEDICATION(S): 1.) 4 mg midazolam (Versed) IV 2.) 200 mcg fentanyl (Sublimaze) IV DEVICE(S): 1.) 20 gauge Temno core biopsy needle MEDICAL HISTORY : Carcinoma, vulva. SURGICAL HISTORY : Resection of vulvar cancer. ENCOUNTER: Initial ACUITY: 1 day PAIN SCORE: 0/10 LOCATION: Left lung mass A total of one core specimen(s) were obtained and sent to the laboratory for pathologic evaluation. PROCEDURE: 1. CT guided lung biopsy. 2. Conscious sedation with continuous EKG and oximetry monitoring. 3. EKG and oximetry remained stable throughout the procedure. Prior to the procedure informed consent was obtained. Any appropriate prior imaging studies were rev iewed. Using automated exposure control and adjustment of the mA and/or kV according to patient size, radiation dose was kept as low as reasonably achievable to obtain optimal diagnostic quality images. DICOM format image data is available electronically for review and comparison. The site was prepped in a sterile fashion. Full sterile technique was used, including cap, mask, kathy rile gloves and gown and a large sterile sheet. Hand hygiene and 2% chlorhexidine and/or betadine/al cohol prep was utilized per protocol for cutaneous antisepsis. The skin and subcutaneous tissues wer e infiltrated with local anesthetic solution. With CT guidance the previously identified target was localized. Biopsy was performed using the presc ribed needle as above. Adequate hemostasis was obtained with compression at the puncture site. Follow-up CT scan reveals no pneumothorax. Conscious sedation was performed with the prescribed dosages and duration as above in the presence of an independent trained radiology nurse to assist in the monitoring of the patient. EKG and oximetry remained stable throughout the procedure. The patient tolerated the procedure well and there were no complications. The patient was sent to Radiology Outpatient Unit in stable condition. CONCLUSION: Uncomplicated CT guided biopsy of left lung mass. Junito Fitzgerald MD on February 10, 2018 at 15:01 Board Certified Radiologist. This report was verified electronically.
--- NOTE | 2018-02-10 15:21 | RADRPT ---
EXAM DATE/TIME: 02/10/2018 15:02 [facility] COMPARISON: No previous studies available for comparison. INDICATIONS : Post left lung biopsy. MEDICAL HISTORY : Carcinoma, vulva. SURGICAL HISTORY : Resection of vulvar cancer. ENCOUNTER: Initial ACUITY: 1 day PAIN SCORE: 10/10 LOCATION: Left chest FINDINGS: A single frontal expiratory view of the chest was performed. The lungs are symmetrically aerated and clear. No evidence of pneumothorax. Mediastinal structures are in the midline. The cardio-mediastinal contours and bronchopulmonary markings are unremarkable for an expiratory exam . Osseous structures are intact. CONCLUSION: No evidence of pneumothorax status post left lung biopsy. Junito Fitzgerald MD on February 10, 2018 at 15:18 Board Certified Radiologist. This report was verified electronically.
--- NOTE | 2018-02-10 17:27 | RADRPT ---
EXAM DATE/TIME: 02/10/2018 16:56 [facility] COMPARISON: CHEST EXPIRATION ONLY, February 10, 2018, 15:02. INDICATIONS : Status post lung biopsy. MEDICAL HISTORY : Carcinoma, vulva. SURGICAL HISTORY : Resection of vulvar cancer. ENCOUNTER: Subsequent ACUITY: 1 day PAIN SCORE: 10/10 LOCATION: Left chest FINDINGS: A single AP portable erect view of the chest was obtained and demonstrates no pneumothorax. The left mid lung mass is unchanged in appearance. There are no infiltrates or effusions. The heart size is at the upper limits of normal. The bony thorax is intact. CONCLUSION: No pneumothorax after lung biopsy. Gabino Peterson MD on February 10, 2018 at 17:24 Board Certified Radiologist. This report was verified electronically.
[2018-02-10] MEDS ORDERED: LIDOCAINE HCL 1% 10 ML VIAL OTHER ONE (17:43)
[2018-02-10] MEDS ORDERED: PROMETHAZINE HCL 25 MG TAB PO ONE (18:30)
[2018-02-10] MEDS: ACETAMINOPHEN 325 MG TAB PO PRN (18:42)
--- NOTE | 2018-02-10 19:06 | HHI.PR ---
Subjective Remarks ALERT NO SOB BIOPSY TODAY Objective Vital Signs Date Time Temp Pulse Resp B/P (MAP) Pulse Ox O2 Delivery O2 Flow Rate FiO2 02/10/18 15:40 62 16 90/42 (58) 94 02/10/18 15:25 64 16 101/41 (61) 95 02/10/18 15:10 97.6 63 18 90/49 (63) 94 02/10/18 12:43 98.2 62 16 84/60 (68) 95 02/10/18 10:12 98.4 81 16 95/52 (66) 95 02/10/18 06:42 97.8 85 14 87/50 (62) 96 02/10/18 03:00 66 02/10/18 00:43 97.6 45 16 93/54 (67) 95 02/09/18 21:43 97.8 60 16 92/51 (65) 96 I/O 02/09/18 02/09/18 02/09/18 02/10/18 02/10/18 02/10/18 07:00 15:00 23:00 07:00 15:00 23:00 Intake Total 1300 ml Balance 1300 ml Intake Oral 1300 ml # Voids 5 Result Diagram: 02/10/18 0654 02/10/18 0654 Objective Remarks GENERAL: SKIN: Warm and dry. HEAD: Atraumatic. Normocephalic. EYES: Pupils equal and round. No scleral icterus. No injection or drainage. ENT: No nasal bleeding or discharge. Mucous membranes pink and moist. NECK: Trachea midline. No JVD. CARDIOVASCULAR: Regular rate and rhythm. RESPIRATORY: No accessory muscle use. Clear to auscultation. Breath sounds equal bilaterally. GASTROINTESTINAL: Abdomen soft, non-tender, nondistended. Hepatic and splenic margins not palpable. MUSCULOSKELETAL: Extremities without clubbing, cyanosis, or edema. No obvious deformities. NEUROLOGICAL: Awake and alert. No obvious cranial nerve deficits. Motor grossly within normal limits. Five out of 5 muscle strength in the arms and legs. Normal speech. PSYCHIATRIC: Appropriate mood and affect; insight and judgment normal. Assessment and Plan Assessment and Plan LUNG MASS COPD PLAQN CHECK PATH BRONCHODILATOR THERAPY Betty Hernández MD Feb 10, 2018 19:06
[2018-02-10 22:00] LABS: ALB/GLOB RATIO (SPE) 0.66 (1.39-2.23)
[2018-02-11] VITALS: PULSE 67
[2018-02-11 04:22] VITALS: BP 93/50; PULSE 56; RESP 18; O2SAT 98
[2018-02-11 04:24] VITALS: PULSE 53
[2018-02-11] MEDS: RESP: ALBUTEROL 2.5 MG/IPRATROPIUM 0.5 MG NEB (SCH) NEB ×2 (04:31→08:07)
[2018-02-11] MEDS: LEVOTHYROXINE SODIUM 50 MCG TAB PO SCH (05:50)
[2018-02-11 07:03] LABS: HEMATOCRIT 26.7 % (35.0-46.0); HEMOGLOBIN 9.2 GM/DL (11.6-15.3); MEAN CELL VOLUME 84.3 FL (80.0-100.0); MEAN CORPUSCULAR HGB CONC 34.4 % (32.0-36.0); MEAN PLATELET VOLUME 6.3 FL (7.0-11.0); PLATELET COUNT 347 TH/MM3 (150-450); RED BLOOD COUNT 3.17 MIL/MM3 (4.00-5.30); RED CELL DISTRIBUTION WIDTH 17.8 % (11.6-17.2); WHITE BLOOD COUNT 6.2 TH/MM3 (4.0-11.0)
[2018-02-11 07:19] LABS: AST (GOT) 14 U/L (15-37); BICARBONATE 27.1 MEQ/L (21.0-32.0); BLOOD UREA NITROGEN 9 MG/DL (7-18); CALCIUM 8.3 MG/DL (8.5-10.1); CHLORIDE 106 MEQ/L (98-107); CREATININE 0.66 MG/DL (0.50-1.00); GLOMERULAR FILTRATION RATE 93 ML/MIN (>89); GLUCOSE,RANDOM 88 MG/DL (74-106); SODIUM (NA) 140 MEQ/L (136-145)
[2018-02-11 07:20] LABS: ALT (GPT) 22 U/L (10-53)
[2018-02-11 07:22] LABS: ALKALINE PHOSPHATASE 87 U/L (45-117); TOTAL BILIRUBIN ADULT 0.6 MG/DL (0.2-1.0); TOTAL PROTEIN 6.5 GM/DL (6.4-8.2)
[2018-02-11] MEDS: SODIUM CHLORIDE 0.9% FLUSH 10 ML FLUSH IV FLUSH SCH (08:07)
--- NOTE | 2018-02-11 08:09 | HHI.FPPN ---
Subjective Remarks Pt seen and examined this morning. She experienced nausea and vomiting yesterday after her lung biopsy. This has now resolved. She denies chest pain, feeling short of breath, abdominal pain. She is hungry this morning and awaiting her breakfast. She reports feeling at her baseline and she is eager to go home. She has no additional acute concerns this morning. (Jessie Beavers MD R3) Objective Vitals Vital Signs Date Time Temp Pulse Resp B/P (MAP) Pulse Ox O2 Delivery O2 Flow Rate FiO2 02/11/18 04:24 53 02/11/18 04:22 56 18 93/50 (64) 98 02/11/18 00:00 67 02/10/18 23:42 67 18 89/45 (60) 95 02/10/18 20:30 53 02/10/18 19:56 97.5 49 18 94/44 (61) 95 02/10/18 15:40 62 16 90/42 (58) 94 02/10/18 15:25 64 16 101/41 (61) 95 02/10/18 15:10 97.6 63 18 90/49 (63) 94 02/10/18 12:43 98.2 62 16 84/60 (68) 95 02/10/18 10:12 98.4 81 16 95/52 (66) 95 (Jessie Beavers MD R3) Result Diagram: 02/11/18 0630 02/11/18 0632 Objective Remarks GENERAL: Thin female, appearing older than stated age. No acute distress, breathing comfortably on room air SKIN: Warm and dry. Biopsy site of left lateral chest covered, no surrounding edema or erythema. HEAD: Normocephalic. EYES: No scleral icterus. No injection or drainage. NECK: Supple, trachea midline. No JVD or lymphadenopathy. CARDIOVASCULAR: Regular rate and rhythm, no murmur appreciated. RESPIRATORY: Mild bibasilar crackles, no significant wheezes, rales or rhonchi. Good air movement. GASTROINTESTINAL: Abdomen soft, non-tender, nondistended. +bowel sounds. MUSCULOSKELETAL: No cyanosis, or edema. BACK: Nontender without obvious deformity. (Jessie Beavers MD R3) A/P Assessment and Plan Patient is a 57-year-old female admitted for acute on chronic anemia discovered in outpatient lab; history of anemia of unknown etiology since 1994. Patient does have a recent vulvar malignancy diagnosis and has never had a colonoscopy. She was found to have a large left-sided lung mass. Will discuss with Dr. Pineda Discharge Planning Anticipate discharge later today or tomorrow pending clearance from pulmonology and heme/onc (Jessie Beavers MD R3) Attending Attestation Patient seen and examined. Case reviewed and discussed with the resident team. Agree with plan of care as discussed with me and documented in the resident note. she very much wants to go home today and does not want to wait for her biopsy results. she agrees to follow up as an outpt and knows she likely has cancer (Cate Pineda MD) Problem List: (1) Lung mass ICD Codes: R91.8 - Other nonspecific abnormal finding of lung field Status: Chronic Plan: 5 cm lung mass discovered on recent chest x-ray. Chest CT from 02/09/18 shows a single large soft tissue mass of the central left lung which appears to involve all 3 lobes. This is most consistent with a primary bronchogenic carcinoma and would be amenable to CT-guided core biopsy. No evidence of separate mediastinal or hilar adenopathy. Oncology consulted, appreciate recommendations, Dr. Davis following CT guided biopsy done on 02/10, results pending (2) Irregular heart rate ICD Codes: I49.9 - Cardiac arrhythmia, unspecified Status: Acute Plan: Regular rate and rhythm on physical exam f/u telemetry f/u EKG (3) Anemia of unknown etiology ICD Codes: D64.9 - Anemia, unspecified Status: Acute Plan: H&H stable, continue to monitor acute on chronic, history of B12 and folate deficiencies Postmenopausal with no vaginal bleeding Recent diagnosis of carcinoma in situ, vulvar Hereditary spherocytosis in family Pt s/p 3 U PRBCs -feeling better since this transfusion. Hemoglobin corrected from 6.2-10.9 on 02/08 f/u hemoccult Iron studies - Severe anemia of chronic disease; likely related to malignancy Iron: 20 (SEVERELY LOW) TIBC: 179 - abnormally low % saturation: 11 - abnormally low ferritin (acute phase reactant)- 1500 - abnormally high CRP elevated to 15.00. ESR elevated at 117. Reticulocyte normal B12 normal Folate slightly low - Folate deficiency - Folic 1mg daily x 3 weeks (or until resolved) Pt has refused bone marrow exam in past, has refused colonoscopy in past (will consider after vulvar surgery) (4) COPD (chronic obstructive pulmonary disease) ICD Codes: J44.9 - Chronic obstructive pulmonary disease, unspecified Status: Chronic Plan: COPD not on maintenance medication at home -Duo nebs every 6 hours and every 2 hours as needed for shortness of breath -Symbicort 2 puffs every 12 hours (5) Vitamin B 12 deficiency ICD Codes: E53.8 - Vitamin B 12 deficiency Status: Chronic Plan: Per patient does have history of B12 deficiency B12 normal Continue B12 supplementation (6) Vulvar cancer ICD Codes: C51.9 - Malignant neoplasm of vulva, unspecified Status: Acute Plan: Workup currently in progress with Dr. Hoyos. Anemia was found on preoperative lab work. Management to continue as outpatient. (7) Hypothyroidism ICD Codes: E03.9 - Hypothyroidism Status: Chronic Plan: Chronic hypothyroidism, mild based on dose of levothyroxine 88 mcg daily. Will continue while inpatient. TSH low on 02/06 (.18) - Decrease to 50mcg daily (8) Bipolar disorder ICD Codes: F31.9 - Bipolar disorder Status: Chronic Plan: Patient states she has a history of bipolar disorder and is allergic to all the meds. She is not on any medications currently. Mood stable. Will monitor symptoms. (9) Anxiety disorder ICD Codes: F41.9 - Anxiety disorder Status: Chronic Plan: Patient has chronic anxiety disorder and on Klonopin as needed at home. We will continue with close monitoring while inpatient. Patient did require Ativan 1 mg IV push once in the ED on 02/07 (10) Fluids/Electrolytes/Nutrition/Prophylaxis Status: Acute Plan: Fluids: PO hydration Electrolytes: monitor and replete as needed Nutrition: regular DVT Prophylaxis: Early ambulation. Bilateral SCDs. GI Prophylaxis: Not indicated. Stool regimen per protocol for constipation prevention. PRN anti-HTN: Clonidine 0.1mg PO PRN for SBP > 180/ and/or DBP > 100 She has noted to have a Darvocet allergy, if patient does have pain will likely need to treat with as opiate. Currently not in any pain. Does also have hydrocodone allergy. (Jessie Beavers MD R3) Problem Qualifiers (1) COPD (chronic obstructive pulmonary disease): Qualified Codes: J44.9 - Chronic obstructive pulmonary disease, unspecified (2) Hypothyroidism: Qualified Codes: E03.9 - Hypothyroidism, unspecified (3) Bipolar disorder: Qualified Codes: F31.9 - Bipolar disorder, unspecified Jessie Beavers MD R3 Feb 11, 2018 08:09 Cate Pineda MD Feb 11, 2018 11:42
[2018-02-11 08:15] VITALS: PULSE 74
[2018-02-11 08:43] VITALS: BP 104/50; PULSE 83; RESP 16; TEMP 98.3; O2SAT 95
[2018-02-11] MEDS: ASCORBIC ACID 500 MG TAB PO SCH (09:08)
[2018-02-11] MEDS: CYANOCOBALAMIN 1,000 MCG TAB PO SCH (09:08)
[2018-02-11] MEDS: FOLIC ACID 1 MG TAB PO SCH (09:08)
[2018-02-11] MEDS: FERROUS SULFATE 325 MG (65 MG ELEMENTAL IRON) TAB PO SCH (09:08)
[2018-02-11] MEDS: DOCUSATE SODIUM 100 MG CAP PO SCH (09:09)
[2018-02-11] MEDS: BUDESONIDE-FORMOTEROL 160/4.5 MCG INHALER INH SCH (09:09)
[2018-02-11] MEDS: clonazePAM 1 MG TAB PO SCH (09:10)
--- NOTE | 2018-02-11 10:52 | HHI.DCPOC ---
Discharge Care Plan Diagnosis: (1) Lung mass (2) Symptomatic anemia (3) Bipolar disorder (4) Vitamin B 12 deficiency (5) COPD (chronic obstructive pulmonary disease) (6) Hypothyroidism Goals to Promote Your Health * To prevent worsening of your condition and complications * To maintain your health at the optimal level Directions to Meet Your Goals Take your medications as prescribed Follow your dietary instruction Follow activity as directed Keep your appointments as scheduled Take your immunizations and boosters as scheduled If your symptoms worsen call your PCP, if no PCP go to Urgent Care Center or Emergency Room Smoking is Dangerous to Your Health. Avoid second hand smoke Call the 24-hour hour crisis hotline for domestic abuse at Jessie Beavers MD R3 Feb 11, 2018 10:52
[2018-02-11] MEDS ORDERED: NEBULIZER1 MI1 (11:05)
[2018-02-11] MEDS ORDERED: Budeson-Formot 160-4.5 Mcg Inh INH (11:05)
[2018-02-11] MEDS ORDERED: Albuterol-Ipratropium Neb NEB (11:05)
[2018-02-11] MEDS ORDERED: FERR325T20 PO (11:05)
--- NOTE | 2018-02-11 11:17 | HHI.DS ---
Discharge Summary Admission Date Feb 10, 2018 at 17:13 Discharge Date: Feb 11, 2018 Admitting Diagnosis symptomatic anemia, history of pernicious anemia, vulvar cancer (1) Lung mass Diagnosis: Secondary Plan: 5 cm lung mass discovered on recent chest x-ray. Chest CT from 02/09/18 shows a single large soft tissue mass of the central left lung which appears to involve all 3 lobes. This is most consistent with a primary bronchogenic carcinoma and would be amenable to CT-guided core biopsy. No evidence of separate mediastinal or hilar adenopathy. Oncology consulted, appreciate recommendations, Dr. Davis following CT guided biopsy done on 02/10, results pending ICD Codes: R91.8 - Other nonspecific abnormal finding of lung field Status: Chronic (2) Irregular heart rate Plan: Regular rate and rhythm on physical exam f/u telemetry f/u EKG ICD Codes: I49.9 - Cardiac arrhythmia, unspecified Status: Acute (3) Anemia of unknown etiology Diagnosis: Principal Plan: H&H stable, continue to monitor acute on chronic, history of B12 and folate deficiencies Postmenopausal with no vaginal bleeding Recent diagnosis of carcinoma in situ, vulvar Hereditary spherocytosis in family Pt s/p 3 U PRBCs -feeling better since this transfusion. Hemoglobin corrected from 6.2-10.9 on 02/08 f/u hemoccult Iron studies - Severe anemia of chronic disease; likely related to malignancy Iron: 20 (SEVERELY LOW) TIBC: 179 - abnormally low % saturation: 11 - abnormally low ferritin (acute phase reactant)- 1500 - abnormally high CRP elevated to 15.00. ESR elevated at 117. Reticulocyte normal B12 normal Folate slightly low - Folate deficiency - Folic 1mg daily x 3 weeks (or until resolved) Pt has refused bone marrow exam in past, has refused colonoscopy in past (will consider after vulvar surgery) ICD Codes: D64.9 - Anemia, unspecified Status: Acute (4) COPD (chronic obstructive pulmonary disease) Plan: COPD not on maintenance medication at home -Duo nebs every 6 hours and every 2 hours as needed for shortness of breath -Symbicort 2 puffs every 12 hours ICD Codes: J44.9 - Chronic obstructive pulmonary disease, unspecified Status: Chronic (5) Vitamin B 12 deficiency Plan: Per patient does have history of B12 deficiency B12 normal Continue B12 supplementation ICD Codes: E53.8 - Vitamin B 12 deficiency Status: Chronic (6) Vulvar cancer Plan: Workup currently in progress with Dr. Hoyos. Anemia was found on preoperative lab work. Management to continue as outpatient. ICD Codes: C51.9 - Malignant neoplasm of vulva, unspecified Status: Acute (7) Hypothyroidism Plan: Chronic hypothyroidism, mild based on dose of levothyroxine 88 mcg daily. Will continue while inpatient. TSH low on 02/06 (.18) - Decrease to 50mcg daily ICD Codes: E03.9 - Hypothyroidism Status: Chronic (8) Bipolar disorder Plan: Patient states she has a history of bipolar disorder and is allergic to all the meds. She is not on any medications currently. Mood stable. Will monitor symptoms. ICD Codes: F31.9 - Bipolar disorder Status: Chronic (9) Anxiety disorder Plan: Patient has chronic anxiety disorder and on Klonopin as needed at home. We will continue with close monitoring while inpatient. Patient did require Ativan 1 mg IV push once in the ED on 02/07 ICD Codes: F41.9 - Anxiety disorder Status: Chronic (10) Fluids/Electrolytes/Nutrition/Prophylaxis Plan: Fluids: PO hydration Electrolytes: monitor and replete as needed Nutrition: regular DVT Prophylaxis: Early ambulation. Bilateral SCDs. GI Prophylaxis: Not indicated. Stool regimen per protocol for constipation prevention. PRN anti-HTN: Clonidine 0.1mg PO PRN for SBP > 180/ and/or DBP > 100 She has noted to have a Darvocet allergy, if patient does have pain will likely need to treat with as opiate. Currently not in any pain. Does also have hydrocodone allergy. Status: Acute Consultants Hematology/oncology, pulmonology Procedures CT-guided lung biopsy on 02/10/18 Brief History Patient is a 57 year old female with recent diagnosis of vulvar cancer who presents with severe anemia. She states that she has been tired since approximately August. She denies dizziness. She does note that she has chills at night when everyone else is comfortable. She has chronic shortness of breath which has not worsened and denies chest pain, easy bruising, syncopal episodes, nausea, vomiting. She does state she has been depressed lately given her mother and son have both recently . She does not note any recent bleeding episodes and specifically denies black or bloody stools, and does state she has never had a colonoscopy. She has not had any postmenopausal bleeding, noting that menopause was age 49. She does note that she has chronic history of intermittent constipation and has in the past had to disimpact herself but this has not been necessary lately. Hemoglobin was found to be 5.7 on preop testing studies with Dr. Hoyos' office and she was sent over due to this. Dr. Hoyos is planning to perform a modified radical resection of her posterior left vulva and perineum and she is pending medical evaluation with her PCP Dr. Ugarte per [facility] oncology notes. CBC/BMP: 02/11/18 0630 02/11/18 0632 Significant Findings Laboratory Tests Test 02/08/18 13:45 02/09/18 07:05 02/09/18 12:45 02/10/18 06:54 Red Blood Count 3.46 MIL/MM3 (4.00-5.30) 3.63 MIL/MM3 (4.00-5.30) Hemoglobin 9.9 GM/DL (11.6-15.3) 10.2 GM/DL (11.6-15.3) Hematocrit 28.7 % (35.0-46.0) 31.0 % (35.0-46.0) Red Cell Distribution Width 17.6 % (11.6-17.2) 17.9 % (11.6-17.2) Mean Platelet Volume 6.6 FL (7.0-11.0) 6.5 FL (7.0-11.0) Neutrophils (%) (Auto) 73.9 % (16.0-70.0) 75.0 % (16.0-70.0) Lymphocytes # (Auto) 0.7 TH/MM3 (1.0-4.8) Erythrocyte Sedimentation Rate 117 mm/hr (0-30) C-Reactive Protein 15.00 MG/DL (0.00-0.30) Haptoglobin 331 MG/DL (30-200) Albumin 2.70 GM/DL (3.50-5.00) 2.2 GM/DL (3.4-5.0) Albumin/Globulin Ratio 0.66 (1.39-2.23) Topqq-6-Spcnfqcfs 0.53 GM/DL (0.11-0.29) Exlfo-2-Spoklrgly 1.12 GM/DL (0.22-1.00) Gamma Globulins 1.66 GM/DL (0.50-1.39) Monocytes (%) (Auto) 8.1 % (0.0-8.0) Estimat Glomerular Filtration Rate 79 ML/MIN (>89) Test 02/11/18 06:30 02/11/18 06:32 Red Blood Count 3.17 MIL/MM3 (4.00-5.30) Hemoglobin 9.2 GM/DL (11.6-15.3) Hematocrit 26.7 % (35.0-46.0) Red Cell Distribution Width 17.8 % (11.6-17.2) Mean Platelet Volume 6.3 FL (7.0-11.0) Albumin 2.0 GM/DL (3.4-5.0) Calcium Level 8.3 MG/DL (8.5-10.1) Aspartate Amino Transf (AST/SGOT) 14 U/L (15-37) PE at Discharge GENERAL: Thin female, appearing older than stated age. No acute distress, breathing comfortably on room air SKIN: Warm and dry. Biopsy site of left lateral chest covered, no surrounding edema or erythema. HEAD: Normocephalic. EYES: No scleral icterus. No injection or drainage. NECK: Supple, trachea midline. No JVD or lymphadenopathy. CARDIOVASCULAR: Regular rate and rhythm, no murmur appreciated. RESPIRATORY: Mild bibasilar crackles, no significant wheezes, rales or rhonchi. Good air movement. GASTROINTESTINAL: Abdomen soft, non-tender, nondistended. +bowel sounds. MUSCULOSKELETAL: No cyanosis, or edema. BACK: Nontender without obvious deformity. Hospital Course Patient is a 57-year-old female with history of vulvar malignancy, tobacco abuse , who was diagnosed with a hemoglobin of 5.7 on preop lab work as an outpatient and admitted for symptomatic anemia. She was also found to have a large left- sided lung mass on pre-op chest x-ray imaging. She received 3 units of packed red blood cells, anemia resolved. Hematology/oncology and pulmonology were consulted. Chest CT showed a large centrally located mass involving all 3 lobes consistent with a bronchogenic carcinoma. A CT of the abdomen and pelvis showed no evidence of metastatic disease. Patient underwent a CT-guided lung biopsy on 02/10/18, she tolerated this procedure well and a postprocedure chest x -ray showed no evidence of a pneumothorax. Patient has good follow-up and requested to go home. She is to follow-up with her PCP, hematology/oncology, pulmonology after discharge. Lung biopsy pathology pending. Pt Condition on Discharge: Stable Discharge Disposition: Discharge Home Discharge Instructions DIET: Follow Instructions for: As Tolerated, No Restrictions Activities you can perform: Regular-No Restrictions Follow up Referrals: Oncology - 1 Week with Alfred Davis MD PCP Follow-up - 1 Week with Talat Ugarte MD R3 Pulmonology - 1 Week New Orders: CBC NO DIFF - 1 Week New Medications: Nebulizer (Nebulizer) 1 Mis Mis EA .XX DIRECTED for Breathing Treatment, #1 0 Refills use for breathing treatments as directed Ferrous Sulfate (Ferosul) 325 Mg (65 Mg Iron) Tablet 325 MG PO DAILY, #30 TAB [Albuterol-Ipratropium Neb] () 1 AMPULE NEBU 1 AMPULE NEB Q6HR NEB, #100 AMPULE [Budeson-Formot 160-4.5 Mcg Inh] () 60 PUFF AERO 2 PUFF INH Q12HR, #1 INHALER Continued Medications: Albuterol 18 GM Inh (Ventolin Hfa 18 GM Inh) 90 Mcg/Act Aer 2 PUFF INH Q6H PRN for SHORTNESS OF BREATH, #1 INHALER 6 Refills Clonazepam (Clonazepam) 1 Mg Tab 1 MG PO BID, #60 TAB 3 Refills Cyanocobalamin (Vitamin B-12) 1,000 Mcg Tab 1000 MCG PO DAILY for Nutritional Supplement, #1 BOTTLE 0 Refills Ibuprofen (Ibuprofen) 400 Mg Tab 400 MG PO Q4H PRN for pain, #30 TAB 0 Refills Levothyroxine (Synthroid) 88 Mcg Tab 88 MCG PO DAILY for Thyroid, #30 TAB 11 Refills Jessie Beavers MD R3 Feb 11, 2018 11:17
[2018-02-11 11:56] VITALS: BP 98/53; PULSE 72; RESP 16; TEMP 98.3; O2SAT 99
== END 2018-02-11 14:23 | disposition home or self-care (01) | DRG 809 ==
LOC: NEPC 13:34 → NEDA 17:42 → NEPHCDU 19:05 → OBSVTOIN 02-10 17:13
PROVIDERS: ADMIT Family Medicine; ATTEND Family Medicine
PROC: 30233N1 Transfusion of Nonautologous Red Blood Cells into Peripheral Vein, Percutaneous Approach (ICD-10-PCS; 2018-02-07)
PROC: 0BBL3ZX Excision of Left Lung, Percutaneous Approach, Diagnostic (ICD-10-PCS; principal; 2018-02-10)
DX: D59.1 Other autoimmune hemolytic anemias (principal); C34.2 Malignant neoplasm of middle lobe, bronchus or lung; R64 Cachexia; Z68.1 Body mass index [BMI] 19.9 or less, adult; J44.9 Chronic obstructive pulmonary disease, unspecified; I10 Essential (primary) hypertension; E03.9 Hypothyroidism, unspecified; I49.9 Cardiac arrhythmia, unspecified; D07.1 Carcinoma in situ of vulva; D63.0 Anemia in neoplastic disease; E53.8 Deficiency of other specified B group vitamins; R62.7 Adult failure to thrive; M81.0 Age-related osteoporosis without current pathological fracture; M19.90 Unspecified osteoarthritis, unspecified site; F31.9 Bipolar disorder, unspecified; F41.9 Anxiety disorder, unspecified; F17.210 Nicotine dependence, cigarettes, uncomplicated; Z88.0 Allergy status to penicillin; Z88.1 Allergy status to other antibiotic agents; Z88.5 Allergy status to narcotic agent; Z88.6 Allergy status to analgesic agent; Z91.013 Allergy to seafood
CPT/HCPCS: 32405; 36430; 71045; 71046; 71260; 74177; 77012; 80048; 80053; 81001; 82607; 82728; 82746; 83010; 83540; 83550; 83615; 84165; 85025; 85027; 85044; 85610; 85652; 85730; 86140; 86850; 86900; 86901; 86920; 88305; 88341; 88342; 93005; 94640; 94664; 99152; 99153; J1200; J1720; J2250; J2405; J3010; J7050; P9016; Q0169; Q9967

== ENCOUNTER → 2018-03-19 | Outpatient (CLI) | payer BC ==
[~2018-03-19] MED LIST changes: -AZIT250T3 PO; +Albuterol-Ipratropium Neb NEB; -BACT400T PO; -BIOT1SUB SL; -BROMSYP PO; +Budeson-Formot 160-4.5 Mcg Inh INH; +FERR325T20 PO; -FOLI1TAB4 PO; -MAGICADU2 SWISH-SWAL; -MEDR4PAK PO; +NEBULIZER1 MI1
== END ==
LOC: HRSP 10:46
PROVIDERS: ATTEND Internal Medicine Pulmonary Disease
DX: J44.9 Chronic obstructive pulmonary disease, unspecified (principal)
CPT/HCPCS: 36600; 82805; 94060; 94618; 94726; 94729